=== PATIENT | female | born 2000 | race Two or more races ===

== ENCOUNTER 2020-01-11 22:44 | Emergency (ER) | payer OTHER, SELFPAY ==
[2020-01-11 22:46] VITALS: BP 131/60; PULSE 71; RESP 16; TEMP 37.1; O2SAT 100; BMI 23.8
--- NOTE | 2020-01-12 00:01 | ED.ABDPAIN ---
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 Patient stated she has no risk for STD. Related Data Patient : No Previous Rx's Medication Instructions Recorded cephalexin [Keflex] 250 mg PO TID #20 cap 01/12/20 Allergies Allergy/AdvReac Type Severity Reaction Status Date / Time No Known Allergies Allergy Unverified 11/09/19 19:20 [No Known Allergies*] Review of Systems Review of Systems All other systems are reviewed and are negative Constitutional: Reports as per HPI and Reports no additional constitutional complaints Eyes: Reports as per HPI and Reports no additional eye complaints Reports system reviewed and no additional complaints, except as documented Cardiovascular: Reports as per HPI and Reports no additional cardiovascular complaints Respiratory: Reports as per HPI and Reports no additional respiratory complaints Gastrointestinal: Reports as per HPI and Reports no additional gastrointestinal complaints Genitourinary: Reports no additional female genitourinary complaints Musculoskeletal: Reports no additional musculoskeletal complaints Skin/Breast: Reports system reviewed and no additional complaints, except as docu Psychiatric: Reports no additional psychiatric complaints Endocrine: Reports no additional endocrine complaints Hematologic/Lymphatic: Reports no additional hematologic/lymphatic complaints Allergic/Immunologic: Reports no additional allergic/immunologic complaints Reports system reviewed and no additional complaints, except as documented and Reports Abnormal speech present Physical Exam Vital Signs: Vital Signs: Last Vital Signs Temp 98.8 F 01/11/20 22:46 Pulse 71 01/11/20 22:46 Resp 16 01/11/20 22:46 BP 131/60 01/11/20 22:46 Pulse Ox 100 01/11/20 22:46 Body Mass Index 23.8 Vital signs have been reviewed as normal and appeared to be correct. Blood pressure in the high range. Heart rate normal. Respiration rate normal. Temperature normal. Oxygen saturation normal. Appearance: Alert. Oriented X3. No acute distress. Head: Normal external exam. Normocephalic. Atraumatic. No Malcolm signs noted. No raccoon eyes noted Eyes: PERRLA. EOMI. Conjunctiva and sclera normal. Eyelids normal. ENT: EAC normal. TM's Normal. Pharynx normal. Uvula midline. Moist mucous membranes. No trismus noted. No drooling noted. No muffled voice noted. Neck: Normal inspection. Neck supple. FROM. No adenopathy. Thyroid Normal. No meningeal signs. No neck mass noted. CVS: Normal heart rate and rhythm. Heart sound normal. No murmurs noted. Pulses normal throughout. Respiratory: No respiratory distress. Painless inspiration. Breath sounds normal. No wheezes/rales/rhonchi noted. Chest nontender. No accessory muscle usage noted or decreased air movement noted. Abdomen: Soft and mild suprapubic tenderness, no rebound, no guarding.. Bowel sounds normal in all 4 quadrants. No distention noted. No organomegaly noted. No visible injury noted. Back: No CVA tenderness. Full range of motion noted. Skin: Skin warm and dry. Normal skin color. Normal skin turgor. No rashes/lesions/lacerations noted. Extremities: No lower extremity edema. Extremities exhibit normal range of motion. Extremities nontender. Neuro: Oriented X 3. No motor deficit. No sensory deficit. Reflexes normal. MDM - Abdominal Pain MDM Narrative Medical decision making narrative: Assessment and plan. 19-year-old female came in with 4 days of abdominal pain, dysuria, patient has a history of appendectomy. Physical exam is unremarkable except for mild suprapubic tenderness, patient adamantly declined risk for STDs. UA showing trace of LE/wbc's will treat with Keflex and drink plenty of fluids. Lab Data Attestation: I reviewed the patient's lab results. Result diagrams: 01/12/20 00:09 01/12/20 00:09 Labs: Lab Results 01/12/20 01/12/20 01/12/20 Range/Units 00:09 00:09 00:09 WBC 7.5 (4.8-10.8) X10*3/uL RBC 4.50 (4.20-5.50) X10*6/uL Hgb 13.1 (12.0-16.0) g/dl Hct 40.0 (37-47) % MCV 88.9 (80-98) fL MCH 29.1 (27.0-33.0) pg MCHC 32.8 (31.0-35.0) g/dl RDW 12.7 (11.0-16.0) % Plt Count 193 (160-400) X10*3/uL MPV 11.9 (9.4-12.3) fL Immature Gran % (Auto) 0.1 (0.0-0.4) % Neut % (Auto) 65.7 (45-73) % Lymph % (Auto) 26.3 (20-40) % [place] % (Auto) 7.1 (2-11) % Eos % (Auto) 0.5 (0-4) % Baso % (Auto) 0.3 (0-2) % Lymph # (Auto) 2.0 (1.2-4.9) X10*3/uL [place] # (Auto) 0.5 (0.1-1.2) X10*3/uL Eos # (Auto) 0.0 (0.0-0.4) X10*3/uL Baso # (Auto) 0.0 (0.0-0.2) X10*3/uL Abs Immat Gran (auto) 0.01 (0.00-0.03) X10*3/uL Absolute Neuts (auto) 4.9 (2.0-8.3) X10*3/uL Absolute Nucleated RBC 0.000 (0.0-0.012) X10*3/uL Nucleated RBC % (auto) 0.0 (0.0-0.2) /100WBC Sodium 138 (135-145) mmol/L Potassium 4.1 (3.3-5.1) mmol/l Chloride 104 (96-108) mmol/L Carbon Dioxide 25 (22-29) mmol/L Anion Gap 13 (12-20) BUN 13 (9-16) mg/dL Creatinine 0.67 (0.5-1.4) mg/dL Estim Creat Clear Calc 105.0 Estimated GFR > 60 Random Glucose 91 (60-115) mg/dL Calcium 9.1 (8.4-10.2) mg/dL Total Bilirubin 0.7 (0.0-1.0) mg/dL Direct Bilirubin 0.2 (0.0-0.5) mg/dL AST 25 (5-31) U/L ALT 35 H (0-31) U/L Alkaline Phosphatase 55 (39-117) U/L Total Protein 7.3 (6.5-8.0) g/dL Albumin 4.7 (3.5-5.0) g/dL Lipase 44 (8-78) U/L Urine Color Urine Appearance Urine pH (5.0-8.0) Ur Specific [place] (1.005-1.025) Urine Protein (NEG-TRACE) MG/DL Urine Glucose (UA) (NEG) MG/DL Urine Ketones (NEG) MG/DL Urine Blood (NEG) Urine Nitrite (NEG) Ur Leukocyte Esterase (NEG) 01/12/20 Range/Units 00:45 WBC (4.8-10.8) X10*3/uL RBC (4.20-5.50) X10*6/uL Hgb (12.0-16.0) g/dl Hct (37-47) % MCV (80-98) fL MCH (27.0-33.0) pg MCHC (31.0-35.0) g/dl RDW (11.0-16.0) % Plt Count (160-400) X10*3/uL MPV (9.4-12.3) fL Immature Gran % (Auto) (0.0-0.4) % Neut % (Auto) (45-73) % Lymph % (Auto) (20-40) % [place] % (Auto) (2-11) % Eos % (Auto) (0-4) % Baso % (Auto) (0-2) % Lymph # (Auto) (1.2-4.9) X10*3/uL [place] # (Auto) (0.1-1.2) X10*3/uL Eos # (Auto) (0.0-0.4) X10*3/uL Baso # (Auto) (0.0-0.2) X10*3/uL Abs Immat Gran (auto) (0.00-0.03) X10*3/uL Absolute Neuts (auto) (2.0-8.3) X10*3/uL Absolute Nucleated RBC (0.0-0.012) X10*3/uL Nucleated RBC % (auto) (0.0-0.2) /100WBC Sodium (135-145) mmol/L Potassium (3.3-5.1) mmol/l Chloride (96-108) mmol/L Carbon Dioxide (22-29) mmol/L Anion Gap (12-20) BUN (9-16) mg/dL Creatinine (0.5-1.4) mg/dL Estim Creat Clear Calc Estimated GFR Random Glucose (60-115) mg/dL Calcium (8.4-10.2) mg/dL Total Bilirubin (0.0-1.0) mg/dL Direct Bilirubin (0.0-0.5) mg/dL AST (5-31) U/L ALT (0-31) U/L Alkaline Phosphatase (39-117) U/L Total Protein (6.5-8.0) g/dL Albumin (3.5-5.0) g/dL Lipase (8-78) U/L Urine Color YELLOW Urine Appearance CLEAR Urine pH 6.5 (5.0-8.0) Ur Specific [place] 1.020 (1.005-1.025) Urine Protein NEG (NEG-TRACE) MG/DL Urine Glucose (UA) NEG (NEG) MG/DL Urine Ketones NEG (NEG) MG/DL Urine Blood NEG (NEG) Urine Nitrite NEG (NEG) Ur Leukocyte Esterase 1+ H (NEG) Discharge Plan Discharge Clinical Impression: Cystitis Patient Disposition: Home, Self-Care Instructions: Urinary Tract Infection in Women (ED) Prescriptions: New cephalexin [Keflex] 250 mg capsule 250 mg PO TID Qty: 20 RF: 0 Referrals: Physician,None [Primary Care Provider] - 2 days [facility] Past Medical History Medical History (Updated 01/12/20 @ 01:18 by Meka Cedillo MD) No known health problems Surgical History (Updated 01/12/20 @ 00:05 by Meka Cedillo MD) History of appendectomy Social History Social History Alcohol intake: never Smoking Status: Never smoker Use of substances other than those prescribed or required for medical reasons: No Advance Directives: No Advance Directives Information Provided: No
[2020-01-12 00:14] LABS: MANUAL DIFF FLAG NO
[2020-01-12 00:16] LABS: Basophils Percent Auto 0.3 % (0-2); Eosinophils Percent Auto 0.5 % (0-4); Hemoglobin 13.1 g/dl (12.0-16.0); Imm Gran Abs Auto 0.01 X10*3/uL (0.00-0.03); Imm Gran Pct Auto 0.1 % (0.0-0.4); Lymphocytes Percent Auto 26.3 % (20-40); Mean Corpuscular HGB Conc 32.8 g/dl (31.0-35.0); Mean Corpuscular Hemoglobin 29.1 pg (27.0-33.0); Mean Corpuscular Volume 88.9 fL (80-98); Mean Platelet Volume 11.9 fL (9.4-12.3); Monocytes Absolute Auto 0.5 X10*3/uL (0.1-1.2); Monocytes Percent Auto 7.1 % (2-11); Neutrophils Absolute Auto 4.9 X10*3/uL (2.0-8.3); Neutrophils Percent Auto 65.7 % (45-73); Platelet Count 193 X10*3/uL (160-400); Red Cell Distribution Width 12.7 % (11.0-16.0); White Blood Count 7.5 X10*3/uL (4.8-10.8)
[2020-01-12 00:41] LABS: Anion Gap 13 (12-20); Blood Urea Nitrogen 13 mg/dL (9-16); Calcium 9.1 mg/dL (8.4-10.2); Carbon Dioxide 25 mmol/L (22-29); Chloride 104 mmol/L (96-108); Estimated Glomerular Filt Rate > 60; Glucose Random 91 mg/dL (60-115); Lipase 44 U/L (8-78); Potassium 4.1 mmol/l (3.3-5.1); Sodium 138 mmol/L (135-145)
[2020-01-12] MEDS: 0.9 % Sodium Chloride 500 ML 1000 ML IV (00:44)
[2020-01-12 00:45] LABS: Alanine Aminotransferase 35 U/L (0-31); Albumin Level 4.7 g/dL (3.5-5.0); Alkaline Phosphatase 55 U/L (39-117); Aspartate Amino Transferase 25 U/L (5-31); Bilirubin Direct 0.2 mg/dL (0.0-0.5); Bilirubin Total 0.7 mg/dL (0.0-1.0); Total Protein 7.3 g/dL (6.5-8.0)
[2020-01-12 00:53] LABS: Glucose Urine UA NEG (NEG); Leukocyte Esterase Urine 1+ (NEG); Nitrite Urine NEG (NEG); PH 6.5 (5.0-8.0); Urine Blood NEG (NEG); Urine Ketones NEG (NEG); Urine Protein NEG (NEG-TRACE)
[2020-01-12 01:01] LABS: Appearance Urine CLEAR; Color Urine YELLOW
[2020-01-12 01:08] LABS: RBC Urine 0 /HPF (0); Squamous Epithelial Cell Urine 1+ /LPF
[2020-01-12 01:09] LABS: Bacteria Urine TRACE /LPF; UPreg QC Valid YES; Urine Pregnancy NEGATIVE (NEGATIVE); WBC Clumps Urine NOTED
[2020-01-12] MEDS: cephALEXin 250 MG CAPSULE PO (01:20)
== END 2020-01-12 01:32 | disposition home or self-care (01) ==
PROVIDERS: Emergency Provider Emergency Medicine
DX: N30.00 Acute cystitis without hematuria (principal); R10.9 Unspecified abdominal pain; Z79.899 Other long term (current) drug therapy
CPT/HCPCS: 36415; 80048; 80076; 81001; 81003; 81025; 83690; 85025; 87086; 99284

== ENCOUNTER 2020-04-08 22:22 | Emergency (ER) | payer OTHER, SELFPAY ==
[2020-04-08 22:37] VITALS: BP 153/90; PULSE 69; RESP 16; TEMP 36.8; O2SAT 98; BMI 25.6
[2020-04-08 22:55] LABS: MANUAL DIFF FLAG NO
[2020-04-08 22:56] LABS: Basophils Percent Auto 0.2 % (0-2); Eosinophils Absolute Auto 0.1 X10*3/uL (0.0-0.4); Eosinophils Percent Auto 1.1 % (0-4); Hematocrit 38.9 % (37-47); Hemoglobin 12.9 g/dl (12.0-16.0); Lymphocytes Absolute Auto 1.6 X10*3/uL (1.2-4.9); Lymphocytes Percent Auto 30.6 % (20-40); Mean Corpuscular HGB Conc 33.2 g/dl (31.0-35.0); Mean Corpuscular Hemoglobin 30.1 pg (27.0-33.0); Mean Corpuscular Volume 90.9 fL (80-98); Monocytes Absolute Auto 0.4 X10*3/uL (0.1-1.2); Monocytes Percent Auto 7.4 % (2-11); Neutrophils Absolute Auto 3.2 X10*3/uL (2.0-8.3); Neutrophils Percent Auto 60.7 % (45-73); Platelet Count 154 X10*3/uL (160-400); Red Blood Count 4.28 X10*6/uL (4.20-5.50); Red Cell Distribution Width 11.9 % (11.0-16.0); White Blood Count 5.3 X10*3/uL (4.8-10.8)
[2020-04-08 22:57] LABS: Glucose Urine UA NEG (NEG); Leukocyte Esterase Urine NEG (NEG); Nitrite Urine NEG (NEG); Urine Blood 2+ (NEG); Urine Ketones NEG (NEG); Urine Protein NEG (NEG-TRACE)
[2020-04-08 22:58] LABS: Appearance Urine HAZY; Color Urine PINK
[2020-04-08 23:00] LABS: UPreg QC Valid YES; Urine Pregnancy NEGATIVE (NEGATIVE)
[2020-04-08 23:05] LABS: RBC Urine TNTC /HPF (0); Squamous Epithelial Cell Urine TRACE /LPF
[2020-04-08 23:17] LABS: Anion Gap 10 (12-20); Blood Urea Nitrogen 15 mg/dL (9-16); Calcium 9.1 mg/dL (8.4-10.2); Carbon Dioxide 28 mmol/L (22-29); Chloride 106 mmol/L (96-108); Creatinine Clr Calc Pharmacy 109.7; Estimated Glomerular Filt Rate > 60; Glucose Random 118 mg/dL (60-115); Potassium 3.7 mmol/L (3.3-5.1); Sodium 140 mmol/L (135-145)
--- NOTE | 2020-04-09 00:12 | ED.ABDPAIN ---
HPI - Abdominal Pain General Chief Complaint: Abdominal Pain Stated Complaint: Abd pain/Headache Source: patient Mode of arrival: ambulatory Limitations: language barrier History of Present Illness HPI narrative: 19-year-old female with no significant past medical history presents with 1 week of intermittent abdominal pain, nausea, and headaches. She does report an abnormal menstrual cycle and has concerns about . She does not report any fevers, chills, chest pain or pressure, palpitations, abdominal distention, dysuria, hematuria, vaginal discharge, or edema. MD elicited complaint: abdominal pain Onset (ago): week(s) (1) Pain Consistency: intermittent Location: suprapubic Severity: mild Quality: cramping Radiation: none Migration to: no migration Relieving factors: rest Associated symptoms: denies other symptoms Related Data Patient : No Previous Rx's Medication Instructions Recorded cephalexin [Keflex] 250 mg PO TID #20 cap 01/12/20 ondansetron HCl [Zofran] 4 mg PO Q8H PRN #7 tab 04/09/20 Allergies Allergy/AdvReac Type Severity Reaction Status Date / Time No Known Allergies Allergy Unverified 11/09/19 19:20 [No Known Allergies*] Review of Systems Review of Systems Constitutional: No Weight loss, No Fever, No Chills, No Night Sweats, No Fatigue, No Malaise ENT/Mouth: No Hearing loss, No Ear Pain, No Nasal Congestion, No Sinus Pain, No Hoarseness, No sore throat, No Rhinorrhea, No Swallowing Difficulty Eyes: No Eye Pain, No Swelling, No Redness, No Foreign Body, No Discharge, No Vision Changes Cardiovascular: No Chest Pain, No SOB, No Dyspnea on Exertion, No Orthopnea, No Edema, No Palpitations Respiratory: No Cough, No Sputum, No Wheezing, No Smoke Exposure, No Dyspnea Gastrointestinal: Positive Nausea, no Vomiting, no Diarrhea, no abdominal Pain, No Hematochezia, No Melena Genitourinary: no irregular bleeding, No Dysuria, No Urinary Frequency, No Hematuria, No Urinary Incontinence, No Urgency, No Flank Pain, No Urinary Flow Changes, No Hesitancy Musculoskeletal: No joint pain, No Myalgias, No Joint Swelling Skin: No Skin Lesions, No rash Neuro: No Weakness, No Numbness, No Paresthesias, No Loss of Consciousness, No Dizziness, No Headache Psych: No Anxiety/Panic, No Depression, No SI/HI/AH/VH, No Social Issues Heme/Lymph: No Bruising, No Bleeding,No Lymphadenopathy Endocrine: No Polyuria, No Polydipsia, No Temperature Intolerance Yes all other systems are reviewed and are negative Physical Exam Vital Signs: Vital Signs: Last Vital Signs Temp 98.2 F 04/08/20 22:37 Pulse 69 04/08/20 22:37 Resp 16 04/08/20 22:37 BP 153/90 H 04/08/20 22:37 Pulse Ox 98 04/08/20 22:37 Body Mass Index 25.6 Appearance: Alert. Oriented X3. No acute distress. Eyes: Pupils equal, round and reactive to light. ENT: Pharynx normal. Neck: Normal inspection. Neck supple. CVS: Normal heart rate and rhythm. Pulses normal. Respiratory: No respiratory distress. Breath sounds normal. Abdomen: Soft and nontender to palpation all quadrants. Normoactive bowel sounds. Skin: Skin warm and dry. Normal skin color. Normal skin turgor. Extremities: No lower extremity edema. Neuro: No motor deficit. No sensory deficit. Course Course Course Narrative: 19-year-old female with past medical history of appendectomy presents with 1 week of intermittent episodes of nausea, abdominal cramping, and an irregular menstrual cycle. Lab values are unremarkable for acute findings, test is negative. Patient menstruating at this time, which can describe the hematuria. At this time she does not have any abdominal pain or nausea. Will order COVID swab at this time. At 1:37 a.m. COVID test is negative. Plan of care is to discharge home with prescription for Zofran. 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 Will translate utilized for discharge instructions. Patient verbalized understanding of and agrees plan of care discharge home. MDM - Abdominal Pain Differential Diagnosis Differential diagnosis: Likely abdominal pain, constipation and gastroenteritis Medical Records Attestation: I reviewed the patient's medical records. Lab Data Attestation: I reviewed the patient's lab results. Result diagrams: 04/08/20 22:49 04/08/20 22:49 Labs: Lab Results 04/08/20 04/08/20 04/08/20 Range/Units 22:49 22:49 22:49 WBC 5.3 (4.8-10.8) X10*3/uL RBC 4.28 (4.20-5.50) X10*6/uL Hgb 12.9 (12.0-16.0) g/dl Hct 38.9 (37-47) % MCV 90.9 (80-98) fL MCH 30.1 (27.0-33.0) pg MCHC 33.2 (31.0-35.0) g/dl RDW 11.9 (11.0-16.0) % Plt Count 154 L (160-400) X10*3/uL MPV 12.0 (9.4-12.3) fL Immature Gran % (Auto) 0.0 (0.0-0.4) % Neut % (Auto) 60.7 (45-73) % Lymph % (Auto) 30.6 (20-40) % [place] % (Auto) 7.4 (2-11) % Eos % (Auto) 1.1 (0-4) % Baso % (Auto) 0.2 (0-2) % Lymph # (Auto) 1.6 (1.2-4.9) X10*3/uL [place] # (Auto) 0.4 (0.1-1.2) X10*3/uL Eos # (Auto) 0.1 (0.0-0.4) X10*3/uL Baso # (Auto) 0.0 (0.0-0.2) X10*3/uL Abs Immat Gran (auto) 0.00 (0.00-0.03) X10*3/uL Absolute Neuts (auto) 3.2 (2.0-8.3) X10*3/uL Absolute Nucleated RBC 0.000 (0.0-0.012) X10*3/uL Nucleated RBC % (auto) 0.0 (0.0-0.2) /100WBC Sodium 140 (135-145) mmol/L Potassium 3.7 (3.3-5.1) mmol/L Chloride 106 (96-108) mmol/L Carbon Dioxide 28 (22-29) mmol/L Anion Gap 10 L (12-20) BUN 15 (9-16) mg/dL Creatinine 0.71 (0.5-1.4) mg/dL Estim Creat Clear Calc 109.7 Estimated GFR > 60 Random Glucose 118 H (60-115) mg/dL Calcium 9.1 (8.4-10.2) mg/dL Urine Color PINK Urine Appearance HAZY Urine pH 8.0 (5.0-8.0) Ur Specific [place] 1.020 (1.005-1.025) Urine Protein NEG (NEG-TRACE) MG/DL Urine Glucose (UA) NEG (NEG) MG/DL Urine Ketones NEG (NEG) MG/DL Urine Blood 2+ H (NEG) Urine Nitrite NEG (NEG) Ur Leukocyte Esterase NEG (NEG) Urine RBC TNTC H (0) /HPF Urine WBC 1-4 (0-4) /HPF Ur Squamous Epith Cells TRACE /LPF Urine Bacteria NONE /LPF Urine Test NEGATIVE (NEGATIVE) COVID-19 (JAYLYN) (Negative) COVID-19 Clin Com 04/09/20 Range/Units 00:12 WBC (4.8-10.8) X10*3/uL RBC (4.20-5.50) X10*6/uL Hgb (12.0-16.0) g/dl Hct (37-47) % MCV (80-98) fL MCH (27.0-33.0) pg MCHC (31.0-35.0) g/dl RDW (11.0-16.0) % Plt Count (160-400) X10*3/uL MPV (9.4-12.3) fL Immature Gran % (Auto) (0.0-0.4) % Neut % (Auto) (45-73) % Lymph % (Auto) (20-40) % [place] % (Auto) (2-11) % Eos % (Auto) (0-4) % Baso % (Auto) (0-2) % Lymph # (Auto) (1.2-4.9) X10*3/uL [place] # (Auto) (0.1-1.2) X10*3/uL Eos # (Auto) (0.0-0.4) X10*3/uL Baso # (Auto) (0.0-0.2) X10*3/uL Abs Immat Gran (auto) (0.00-0.03) X10*3/uL Absolute Neuts (auto) (2.0-8.3) X10*3/uL Absolute Nucleated RBC (0.0-0.012) X10*3/uL Nucleated RBC % (auto) (0.0-0.2) /100WBC Sodium (135-145) mmol/L Potassium (3.3-5.1) mmol/L Chloride (96-108) mmol/L Carbon Dioxide (22-29) mmol/L Anion Gap (12-20) BUN (9-16) mg/dL Creatinine (0.5-1.4) mg/dL Estim Creat Clear Calc Estimated GFR Random Glucose (60-115) mg/dL Calcium (8.4-10.2) mg/dL Urine Color Urine Appearance Urine pH (5.0-8.0) Ur Specific [place] (1.005-1.025) Urine Protein (NEG-TRACE) MG/DL Urine Glucose (UA) (NEG) MG/DL Urine Ketones (NEG) MG/DL Urine Blood (NEG) Urine Nitrite (NEG) Ur Leukocyte Esterase (NEG) Urine RBC (0) /HPF Urine WBC (0-4) /HPF Ur Squamous Epith Cells /LPF Urine Bacteria /LPF Urine Test (NEGATIVE) COVID-19 (JAYLYN) Negative (Negative) COVID-19 Clin Com See Note Discharge Plan Discharge Clinical Impression: Nausea Patient Disposition: Home, Self-Care Instructions: Acute Nausea and Vomiting (ED) Additional Instructions: Te evaluaron por n?useas, dolor abdominal intermitente, un ciclo menstrual anormal. [place] prueba de embarazo es negativa. [place] prueba COVID es negativa. Romina valores de laboratorio no son notables para cualquier hallazgo que requiera evan intervenci?n aguda. Por favor, utilice Zofran seg?n sea necesario para las n?useas. Usted puede considerar hacer un seguimiento con el m?dico de atenci?n primaria si las n?useas persisten. Jennyfer por elegir franky departamento de emergencias para la evaluaci?n. Por favor, gene un seguimiento con el m?dico de atenci?n primaria seg?n sea necesario. Regrese al departamento de emergencias para cualquier s?ntoma nuevo, preocupante o que empeore You were evaluated for nauseousness, intermittent abdominal pain, an abnormal menstrual cycle. Her test is negative. Your COVID test is negative. Your lab values are unremarkable for any findings requiring acute intervention. Please use Zofran as needed for nausea. You may consider following up with primary care physician if nausea persists. Thank you for choosing this emergency department for evaluation. Please follow-up with primary care physician as needed. Return to the emergency department for any new, concerning, or worsening symptoms. Prescriptions: New ondansetron HCl [Zofran] 4 mg tablet 4 mg PO Q8H PRN (Reason: nausea and vomiting) Qty: 7 RF: 0 No Action cephalexin [Keflex] 250 mg capsule 250 mg PO TID Qty: 20 RF: 0 PMFSH Past Medical History Attestation statement: The following information was validated with the patient. Source: old records reviewed Medical History No known health problems Surgical History History of appendectomy Social History Social History Alcohol intake: never Smoking Status: Never smoker Advance Directives: No
[2020-04-09 01:13] LABS: COVID-19 Test Negative (Negative)
== END 2020-04-09 01:51 | disposition home or self-care (01) ==
PROVIDERS: Nurse Practitioner Family; Emergency Provider Student in an Organized Health Care Education/Training Program
DX: R11.2 Nausea with vomiting, unspecified (principal); Z20.822 Contact with and (suspected) exposure to COVID-19; N92.6 Irregular menstruation, unspecified
CPT/HCPCS: 36415; 80048; 81001; 81025; 85025; 87635; 99283

== ENCOUNTER 2020-05-27 13:19 | Emergency (ER) | payer OTHER, SELFPAY ==
[2020-05-27 13:52] VITALS: BP 118/71; PULSE 69; RESP 18; TEMP 36.8; O2SAT 100; BMI 57.2
--- NOTE | 2020-05-27 15:49 | ED.FEMALEGU ---
HPI - Female Genitourinary General Chief complaint: Vaginal Bleeding <LUCRETIA Nelson Last Filed: 05/27/20 18:00> Stated complaint: vag bleed <LUCRETIA Nelson Last Filed: 05/27/20 18:00> Time Seen by Provider: 05/27/20 15:44 <LUCRETIA Nelson Last Filed: 05/27/20 18:00> Source: patient <LUCRETIA Nelson Last Filed: 05/27/20 18:00> Mode of arrival: ambulatory <LUCRETIA Nelson Last Filed: 05/27/20 18:00> Limitations: no limitations <LUCRETIA Nelson Last Filed: 05/27/20 18:00> History of Present Illness HPI Narrative: 19 y/o female presenting with vaginal bleeding since 05/17. She reports she has had irregular menses for a long time however it has been much more frequent lately. She had 2 cycles in March and another cycle mid-April. She had a normal PAP smear on 05/15. She reports being on OCPs, is newly on [place] combination pill for the last 1 month because her prior pill was making her nauseated. She states she was dizzy with some bleeding that happened yesterday. She intermittently has some right lower pelvic pain over the last 1 week, none at present. She states she last had intercourse last night without pain or bleeding. This morning she had a gush of blood with some small clots that scared her. She called her doctor but got no response so she came to the ER for further evaluation. <LUCRETIA Nelson - Last Filed: 05/27/20 18:00> MD elicited complaint: vaginal bleeding <LUCRETIA Nelson Last Filed: 05/27/20 18:00> Onset (ago): month(s) (2-3) <LUCRETIA Nelson Last Filed: 05/27/20 18:00> Location of symptoms: vaginal and pelvis <LUCRETIA Nelson Last Filed: 05/27/20 18:00> Severity: moderate <LUCRETIA Nelson Last Filed: 05/27/20 18:00> Female Urogenital Radiation: Non-Radiating <LUCRETIA Nelson - Last Filed: 05/27/20 18:00> Quality of pain: cramping <LUCRETIA Nelson - Last Filed: 05/27/20 18:00> Consistency: intermittent <LUCRETIA Nelson - Last Filed: 05/27/20 18:00> Vaginal discharge: none <LUCRETIA Nelson - Last Filed: 05/27/20 18:00> Vaginal bleeding: moderate and clots <LUCRETIA Nelson - Last Filed: 05/27/20 18:00> Urinary symptoms: Urgency and Frequency <LUCRETIA Nelson - Last Filed: 05/27/20 18:00> Exacerbating factors: none <LUCRETIA Nelson - Last Filed: 05/27/20 18:00> Relieving factors: none <LUCRETIA Nelson - Last Filed: 05/27/20 18:00> Associated symptoms: abdominal pain <LUCRETIA Nelson - Last Filed: 05/27/20 18:00> Treatment prior to arrival: none <LUCRETIA Nelson - Last Filed: 05/27/20 18:00> Sexual activity: Yes <LUCRETIA Nelson - Last Filed: 05/27/20 18:00> Possible : unsure if <LUCRETIA Nelson - Last Filed: 05/27/20 18:00> Date of Last Menstrual Period: 05/06/20 <LUCRETIA Nelson - Last Filed: 05/27/20 18:00> Related Data Home medications: Previous Rx's Medication Instructions Recorded cephalexin [Keflex] 250 mg PO TID #20 cap 01/12/20 ondansetron HCl [Zofran] 4 mg PO Q8H PRN #7 tab 04/09/20 <LUCRETIA Nelson - Last Filed: 05/27/20 18:00> Allergies/Adverse reactions: Allergies Allergy/AdvReac Type Severity Reaction Status Date / Time No Known Allergies Allergy Unverified 05/27/20 13:33 [No Known Allergies*] <LUCRETIA Nelson - Last Filed: 05/27/20 18:00> Review of Systems Review of Systems: Constitutional: No Fever, No Chills Cardiovascular: No Chest Pain, No SOB Respiratory: No Cough, No Sputum Gastrointestinal: No Nausea, No Vomiting, No Diarrhea, + abdominal Pain, No Hematochezia, No Melena Genitourinary: No Dysuria, + Urinary Frequency, No Hematuria, +vaginal bleeding Skin: No Skin Lesions, No rash Neuro: No Weakness, No Numbness, + Dizziness, No Headache Psych: + Anxiety/Panic Endocrine: No Polyuria, No Polydipsia <LUCRETIA Nelson - Last Filed: 05/27/20 18:00> [facility]LY [facility] Past Medical History Medical History: Medical History No known health problems <LUCRETIA eNlson - Last Filed: 05/27/20 18:00> Surgical History: Surgical History History of appendectomy <LUCRETIA Nelson - Last Filed: 05/27/20 18:00> Date of Last Menstrual Period: 05/06/20 <LUCRETIA Nelson - Last Filed: 05/27/20 18:00> Social History Social History: Social History Alcohol intake: never Smoking Status: Never smoker Advance Directives: No Advance Directives Information Provided: No <LUCRETIA Nelson - Last Filed: 05/27/20 18:00> Physical Exam Vital Signs: Vital Signs: Last Vital Signs Temp 98.3 F 05/27/20 13:52 Pulse 75 05/27/20 17:58 Resp 12 05/27/20 17:58 BP 106/64 05/27/20 17:58 Pulse Ox 100 05/27/20 17:58 Body Mass Index 57.2 Appearance: Alert. Oriented X3. No acute distress. HEENT: normal external inspection Neck: Normal inspection. Neck supple. CVS: Normal heart rate and rhythm. Pulses normal. Respiratory: No respiratory distress. Breath sounds normal. Abdomen: Soft and nontender. +BS x4 Pelvic: normal external genitalia, vaginal vault with scant amount of brown vaginal discharge and dark red blood at cervical os Skin: Skin warm and dry. Normal skin color. Normal skin turgor. No rashes. Extremities: No lower extremity edema. Neuro: Oriented X 3. nonfocal <LUCRETIA Nelson - Last Filed: 05/27/20 18:00> Vital Signs: Last Vital Signs Temp 98.3 F 05/27/20 13:52 Pulse 75 05/27/20 17:58 Resp 12 05/27/20 17:58 BP 106/64 05/27/20 17:58 Pulse Ox 100 05/27/20 17:58 Body Mass Index 57.2 <Edilson Cummings MD - Last Filed: 06/11/20 09:19> Course Course Course Narrative: 19 y/o female with irregular menses presenting with irregular bleeding. Symptomatic yesterday with dizziness. Pelvic exam unremarkable. Will check CBC and coags to assess for anemia. <LUCRETIA Nelson - Last Filed: 05/27/20 18:00> I have reviewed the chart <Edilson Cummings MD - Last Filed: 06/11/20 09:19> Reevaluation(s) Reevaluation #1: H/H is normal. Coags normal. Awaiting UA then can d/c home with plan to follow up with OB. <LUCRETIA Nelson - Last Filed: 05/27/20 18:00> MDM - Female Genitourinary Lab Data Result diagrams: : 05/27/20 17:10 05/27/20 17:10 <LUCRETIA Nelson - Last Filed: 05/27/20 18:00> Labs: Lab Results 05/27/20 05/27/20 05/27/20 Range/Units 17:10 17:10 17:10 WBC 6.3 (4.8-10.8) X10*3/uL RBC 4.51 (4.20-5.50) X10*6/uL Hgb 13.6 (12.0-16.0) g/dl Hct 41.1 (37-47) % MCV 91.1 (80-98) fL MCH 30.2 (27.0-33.0) pg MCHC 33.1 (31.0-35.0) g/dl RDW 12.4 (11.0-16.0) % Plt Count 184 (160-400) X10*3/uL MPV 12.0 (9.4-12.3) fL Immature Gran % (Auto) 0.2 (0.0-0.4) % Neut % (Auto) 64.4 (45-73) % Lymph % (Auto) 27.3 (20-40) % [place] % (Auto) 6.5 (2-11) % Eos % (Auto) 1.3 (0-4) % Baso % (Auto) 0.3 (0-2) % Lymph # (Auto) 1.7 (1.2-4.9) X10*3/uL [place] # (Auto) 0.4 (0.1-1.2) X10*3/uL Eos # (Auto) 0.1 (0.0-0.4) X10*3/uL Baso # (Auto) 0.0 (0.0-0.2) X10*3/uL Abs Immat Gran (auto) 0.01 (0.00-0.03) X10*3/uL Absolute Neuts (auto) 4.0 (2.0-8.3) X10*3/uL Absolute Nucleated RBC 0.000 (0.0-0.012) X10*3/uL Nucleated RBC % (auto) 0.0 (0.0-0.2) /100WBC PT 11.5 (10.8-13.0) SEC INR 1.0 (0.9-1.1) APTT 34.8 (24.1-38.0) SEC Sodium 140 (135-145) mmol/L Potassium 3.7 (3.3-5.1) mmol/L Chloride 104 (96-108) mmol/L Carbon Dioxide 30 H (22-29) mmol/L Anion Gap 10 L (12-20) BUN 12 (9-16) mg/dL Creatinine 0.73 (0.5-1.4) mg/dL Estim Creat Clear Calc 167.1 Estimated GFR > 60 Random Glucose 120 H (60-115) mg/dL Calcium 9.2 (8.4-10.2) mg/dL Beta HCG, Quant < 2 mIU/mL Urine Color Urine Appearance Urine pH (5.0-8.0) Ur Specific [place] (1.005-1.025) Urine Protein (NEG-TRACE) MG/DL Urine Glucose (UA) (NEG) MG/DL Urine Ketones (NEG) MG/DL Urine Blood (NEG) Urine Nitrite (NEG) Ur Leukocyte Esterase (NEG) Urine RBC (0) /HPF Urine WBC (0-4) /HPF Ur Squamous Epith Cells /LPF Amorphous Sediment /LPF Urine Bacteria /LPF Urine Test (NEGATIVE) 05/27/20 05/27/20 Range/Units 17:10 17:10 WBC (4.8-10.8) X10*3/uL RBC (4.20-5.50) X10*6/uL Hgb (12.0-16.0) g/dl Hct (37-47) % MCV (80-98) fL MCH (27.0-33.0) pg MCHC (31.0-35.0) g/dl RDW (11.0-16.0) % Plt Count (160-400) X10*3/uL MPV (9.4-12.3) fL Immature Gran % (Auto) (0.0-0.4) % Neut % (Auto) (45-73) % Lymph % (Auto) (20-40) % [place] % (Auto) (2-11) % Eos % (Auto) (0-4) % Baso % (Auto) (0-2) % Lymph # (Auto) (1.2-4.9) X10*3/uL [place] # (Auto) (0.1-1.2) X10*3/uL Eos # (Auto) (0.0-0.4) X10*3/uL Baso # (Auto) (0.0-0.2) X10*3/uL Abs Immat Gran (auto) (0.00-0.03) X10*3/uL Absolute Neuts (auto) (2.0-8.3) X10*3/uL Absolute Nucleated RBC (0.0-0.012) X10*3/uL Nucleated RBC % (auto) (0.0-0.2) /100WBC PT (10.8-13.0) SEC INR (0.9-1.1) APTT (24.1-38.0) SEC Sodium (135-145) mmol/L Potassium (3.3-5.1) mmol/L Chloride (96-108) mmol/L Carbon Dioxide (22-29) mmol/L Anion Gap (12-20) BUN (9-16) mg/dL Creatinine (0.5-1.4) mg/dL Estim Creat Clear Calc Estimated GFR Random Glucose (60-115) mg/dL Calcium (8.4-10.2) mg/dL Beta HCG, Quant mIU/mL Urine Color YELLOW Urine Appearance HAZY Urine pH 7.5 (5.0-8.0) Ur Specific [place] 1.020 (1.005-1.025) Urine Protein NEG (NEG-TRACE) MG/DL Urine Glucose (UA) NEG (NEG) MG/DL Urine Ketones NEG (NEG) MG/DL Urine Blood 2+ H (NEG) Urine Nitrite NEG (NEG) Ur Leukocyte Esterase NEG (NEG) Urine RBC 1-4 (0) /HPF Urine WBC 1-4 (0-4) /HPF Ur Squamous Epith Cells 1+ /LPF Amorphous Sediment 4+ /LPF Urine Bacteria NONE /LPF Urine Test NEGATIVE (NEGATIVE) <LUCRETIA Nelson - Last Filed: 05/27/20 18:00> Lab Results 05/27/20 05/27/20 05/27/20 Range/Units 17:10 17:10 17:10 WBC 6.3 (4.8-10.8) X10*3/uL RBC 4.51 (4.20-5.50) X10*6/uL Hgb 13.6 (12.0-16.0) g/dl Hct 41.1 (37-47) % MCV 91.1 (80-98) fL MCH 30.2 (27.0-33.0) pg MCHC 33.1 (31.0-35.0) g/dl RDW 12.4 (11.0-16.0) % Plt Count 184 (160-400) X10*3/uL MPV 12.0 (9.4-12.3) fL Immature Gran % (Auto) 0.2 (0.0-0.4) % Neut % (Auto) 64.4 (45-73) % Lymph % (Auto) 27.3 (20-40) % [place] % (Auto) 6.5 (2-11) % Eos % (Auto) 1.3 (0-4) % Baso % (Auto) 0.3 (0-2) % Lymph # (Auto) 1.7 (1.2-4.9) X10*3/uL [place] # (Auto) 0.4 (0.1-1.2) X10*3/uL Eos # (Auto) 0.1 (0.0-0.4) X10*3/uL Baso # (Auto) 0.0 (0.0-0.2) X10*3/uL Abs Immat Gran (auto) 0.01 (0.00-0.03) X10*3/uL Absolute Neuts (auto) 4.0 (2.0-8.3) X10*3/uL Absolute Nucleated RBC 0.000 (0.0-0.012) X10*3/uL Nucleated RBC % (auto) 0.0 (0.0-0.2) /100WBC PT 11.5 (10.8-13.0) SEC INR 1.0 (0.9-1.1) APTT 34.8 (24.1-38.0) SEC Sodium 140 (135-145) mmol/L Potassium 3.7 (3.3-5.1) mmol/L Chloride 104 (96-108) mmol/L Carbon Dioxide 30 H (22-29) mmol/L Anion Gap 10 L (12-20) BUN 12 (9-16) mg/dL Creatinine 0.73 (0.5-1.4) mg/dL Estim Creat Clear Calc 167.1 Estimated GFR > 60 Random Glucose 120 H (60-115) mg/dL Calcium 9.2 (8.4-10.2) mg/dL Beta HCG, Quant < 2 mIU/mL Urine Color Urine Appearance Urine pH (5.0-8.0) Ur Specific [place] (1.005-1.025) Urine Protein (NEG-TRACE) MG/DL Urine Glucose (UA) (NEG) MG/DL Urine Ketones (NEG) MG/DL Urine Blood (NEG) Urine Nitrite (NEG) Ur Leukocyte Esterase (NEG) Urine RBC (0) /HPF Urine WBC (0-4) /HPF Ur Squamous Epith Cells /LPF Amorphous Sediment /LPF Urine Bacteria /LPF Urine Test (NEGATIVE) 05/27/20 05/27/20 Range/Units 17:10 17:10 WBC (4.8-10.8) X10*3/uL RBC (4.20-5.50) X10*6/uL Hgb (12.0-16.0) g/dl Hct (37-47) % MCV (80-98) fL MCH (27.0-33.0) pg MCHC (31.0-35.0) g/dl RDW (11.0-16.0) % Plt Count (160-400) X10*3/uL MPV (9.4-12.3) fL Immature Gran % (Auto) (0.0-0.4) % Neut % (Auto) (45-73) % Lymph % (Auto) (20-40) % [place] % (Auto) (2-11) % Eos % (Auto) (0-4) % Baso % (Auto) (0-2) % Lymph # (Auto) (1.2-4.9) X10*3/uL [place] # (Auto) (0.1-1.2) X10*3/uL Eos # (Auto) (0.0-0.4) X10*3/uL Baso # (Auto) (0.0-0.2) X10*3/uL Abs Immat Gran (auto) (0.00-0.03) X10*3/uL Absolute Neuts (auto) (2.0-8.3) X10*3/uL Absolute Nucleated RBC (0.0-0.012) X10*3/uL Nucleated RBC % (auto) (0.0-0.2) /100WBC PT (10.8-13.0) SEC INR (0.9-1.1) APTT (24.1-38.0) SEC Sodium (135-145) mmol/L Potassium (3.3-5.1) mmol/L Chloride (96-108) mmol/L Carbon Dioxide (22-29) mmol/L Anion Gap (12-20) BUN (9-16) mg/dL Creatinine (0.5-1.4) mg/dL Estim Creat Clear Calc Estimated GFR Random Glucose (60-115) mg/dL Calcium (8.4-10.2) mg/dL Beta HCG, Quant mIU/mL Urine Color YELLOW Urine Appearance HAZY Urine pH 7.5 (5.0-8.0) Ur Specific [place] 1.020 (1.005-1.025) Urine Protein NEG (NEG-TRACE) MG/DL Urine Glucose (UA) NEG (NEG) MG/DL Urine Ketones NEG (NEG) MG/DL Urine Blood 2+ H (NEG) Urine Nitrite NEG (NEG) Ur Leukocyte Esterase NEG (NEG) Urine RBC 1-4 (0) /HPF Urine WBC 1-4 (0-4) /HPF Ur Squamous Epith Cells 1+ /LPF Amorphous Sediment 4+ /LPF Urine Bacteria NONE /LPF Urine Test NEGATIVE (NEGATIVE) <Edilson Cummings MD - Last Filed: 06/11/20 09:19> Discharge Plan Discharge Clinical Impression: Vaginal bleeding <LUCRETIA Nelson - Last Filed: 05/27/20 18:00> Patient Disposition: Home, Self-Care <LUCRETIA Nelson - Last Filed: 05/27/20 18:00> Instructions: Dysfunctional Uterine Bleeding (ED) <LUCRETIA Nelson - Last Filed: 05/27/20 18:00> Additional Instructions: Your pelvic exam was unremarkable. Your blood work showed normal blood counts. Recommend following up with a dedicated [facility] [employer]ER provider - information below Continue to take your control pills. Irregular bleeding can occur when the pill is changed. If you have worsening bleeding along with pain, dizziness, chest pain, or shortness of breath come back to the ER for further evaluation. [place] examen p?lvico no tuvo nada especial. [place] an?lisis de marybeth mostr? recuentos sangu?neos normales. Recomendar el seguimiento con un proveedor de obstetricia / ginecolog?a dedicado: informaci?n a continuaci?n Contin?e tomando matilde p?ldoras anticonceptivas. Puede ocurrir sangrado irregular cuando se cambia la p?ldora. Si tiene un sangrado que empeora junto con dolor, mareos, dolor en el pecho o dificultad para respirar, regrese a la keira de emergencias para evan evaluaci?n adicional. <LUCRETIA Nelson - Last Filed: 05/27/20 18:00> Prescriptions: No Action cephalexin [Keflex] 250 mg capsule 250 mg PO TID Qty: 20 RF: 0 ondansetron HCl [Zofran] 4 mg tablet 4 mg PO Q8H PRN (Reason: nausea and vomiting) Qty: 7 RF: 0 <LUCRETIA Nelson - Last Filed: 05/27/20 18:00> Referrals: Easton Cooper MD [Physician] - 2 days (abnormal vaginal bleeding) <LUCRETIA Nelson - Last Filed: 05/27/20 18:00> Interventions: ED Discharge Assessment Last Done: 05/27/20 18:24 <LUCRETIA Nelson - Last Filed: 05/27/20 18:00> Discharge Date/Time: 05/27/20 18:26 <LUCRETIA Nelson - Last Filed: 05/27/20 18:00>
[2020-05-27 17:20] LABS: MANUAL DIFF FLAG NO
[2020-05-27 17:21] LABS: Basophils Percent Auto 0.3 % (0-2); Eosinophils Absolute Auto 0.1 X10*3/uL (0.0-0.4); Eosinophils Percent Auto 1.3 % (0-4); Hematocrit 41.1 % (37-47); Hemoglobin 13.6 g/dl (12.0-16.0); Imm Gran Abs Auto 0.01 X10*3/uL (0.00-0.03); Imm Gran Pct Auto 0.2 % (0.0-0.4); Lymphocytes Absolute Auto 1.7 X10*3/uL (1.2-4.9); Lymphocytes Percent Auto 27.3 % (20-40); Mean Corpuscular HGB Conc 33.1 g/dl (31.0-35.0); Mean Corpuscular Hemoglobin 30.2 pg (27.0-33.0); Mean Corpuscular Volume 91.1 fL (80-98); Monocytes Absolute Auto 0.4 X10*3/uL (0.1-1.2); Monocytes Percent Auto 6.5 % (2-11); Neutrophils Percent Auto 64.4 % (45-73); Platelet Count 184 X10*3/uL (160-400); Red Blood Count 4.51 X10*6/uL (4.20-5.50); Red Cell Distribution Width 12.4 % (11.0-16.0); White Blood Count 6.3 X10*3/uL (4.8-10.8)
[2020-05-27 17:35] LABS: Prothrombin Time 11.5 SEC (10.8-13.0)
[2020-05-27 17:38] LABS: Partial Thromboplastin Time 34.8 SEC (24.1-38.0)
[2020-05-27 17:40] LABS: Anion Gap 10 (12-20); Blood Urea Nitrogen 12 mg/dL (9-16); Calcium 9.2 mg/dL (8.4-10.2); Carbon Dioxide 30 mmol/L (22-29); Chloride 104 mmol/L (96-108); Creatinine Clr Calc Pharmacy 167.1; Estimated Glomerular Filt Rate > 60; Glucose Random 120 mg/dL (60-115); Glucose Urine UA NEG (NEG); Leukocyte Esterase Urine NEG (NEG); Nitrite Urine NEG (NEG); PH 7.5 (5.0-8.0); Potassium 3.7 mmol/L (3.3-5.1); Sodium 140 mmol/L (135-145); Urine Blood 2+ (NEG); Urine Ketones NEG (NEG); Urine Protein NEG (NEG-TRACE)
[2020-05-27 17:50] LABS: Appearance Urine HAZY; Color Urine YELLOW; UPreg QC Valid YES; Urine Pregnancy NEGATIVE (NEGATIVE)
[2020-05-27 17:58] VITALS: BP 106/64; PULSE 75; RESP 12; O2SAT 100
[2020-05-27 18:04] LABS: Amorphous Sediment Urine 4+ /LPF; Squamous Epithelial Cell Urine 1+ /LPF
[2020-05-27 18:50] LABS: HCG Quantitative < 2 mIU/mL
== END 2020-05-27 18:26 | disposition home or self-care (01) ==
PROVIDERS: Physician Assistant; Emergency Provider Emergency Medicine
DX: N93.9 Abnormal uterine and vaginal bleeding, unspecified (principal); R25.2 Cramp and spasm; Z79.899 Other long term (current) drug therapy
CPT/HCPCS: 36415; 80048; 81001; 81025; 84702; 85025; 85610; 85730; 99283

== ENCOUNTER → 2020-10-01 13:38 | Outpatient (BNVA) | payer OTHER, SELFPAY | PROVIDERS: Visit Provider Advanced Practice Midwife | DX: Z32.01 Encounter for pregnancy test, result positive (principal) | CPT/HCPCS: 99202 ==

== ENCOUNTER 2022-02-24 19:58 | Emergency (ER) | payer OTHER, SELFPAY ==
--- NOTE | ~2022-02-24 | XR_ITS ---
EXAMINATION: XR CHEST CLINICAL INFORMATION: Chest pain COMPARISON: Chest x-ray 10/13/2017 TECHNIQUE: Frontal view of the chest was obtained. FINDINGS: No significant abnormality is noted involving the heart, lungs, mediastinum, bony thorax or soft tissues. XR/XR chest 1V IMPRESSION: Unremarkable examination.
--- NOTE | ~2022-02-24 | US_ITS ---
EXAMINATION: US ABDOMEN LIMITED CLINICAL INFORMATION: Cholelithiasis. COMPARISON: CT dated 10/28/2016 TECHNIQUE: Real-time imaging of the right upper quadrant abdominal viscera. FINDINGS: PANCREAS: Normal. LIVER: Normal. The liver is normal in size. The liver contour is normal. Parenchymal echogenicity is normal. No focal hepatic lesion. There is no intrahepatic biliary duct dilatation seen. GALLBLADDER: The gallbladder is physiologically distended without evidence of stones, sludge, wall thickening or pericholecystic fluid. There is a 2 mm polyp. Polyps of this small size almost invariably represent cholesterolosis. No follow-up indicated. COMMON BILE DUCT: Normal in caliber measuring 0.3 cm in diameter. RIGHT KIDNEY: Echogenic renal pyramids. No hydronephrosis. Nonobstructive suspected in the mid and lower pole. No focal parenchymal lesions. The kidney measures 10.7 cm in maximum dimension. FREE FLUID: None. US/US abdomen limited IMPRESSION: * No cholelithiasis or evidence of cholecystitis. * Bilateral echogenic right renal pyramids. This can be seen in setting of medullary nephrocalcinosis, medullary sponge kidney and many other disease processes. * There are 2 nonobstructive calculi in the right kidney.
--- NOTE | ~2022-02-24 | CT_ITS ---
EXAMINATION: CT ABDOMEN AND PELVIS WITHOUT CONTRAST CLINICAL INFORMATION: Pain and fever. COMPARISON: 10/28/2016 TECHNIQUE: Multidetector volumetric imaging was performed from the superior aspect of the liver through the pubic symphysis. Sagittal and coronal reformatted images were obtained on the technologist's workstation. This CT examination was performed using dose optimization techniques as appropriate, variously including the following: *Automated exposure control *Adjustment of mA and/or kV according to patient size (this includes techniques or standardized protocols for targeted exams where dose is matched to indication/reason for exam; i.e. extremities or head) *Use of iterative reconstruction technique DLP: 519 mGy-cm FINDINGS: LUNG BASES: The visualized lung bases are unremarkable. LIVER, GALLBLADDER, AND BILIARY TREE: The liver is normal in size, shape, and attenuation. No focal hepatic lesion or biliary ductal dilatation is present. The gallbladder is unremarkable with no evidence of radiopaque gallstones, gallbladder wall thickening, or obvious pericholecystic inflammatory changes. PANCREAS: Unremarkable. SPLEEN: Unremarkable. ADRENAL GLANDS: Unremarkable. KIDNEYS AND URETERS: Bilateral medullary nephrocalcinosis with superimposed discrete calcifications, unclear whether they resides within the pyramids or calyces/fornices. No ureteral calculi or hydronephrosis. No renal cysts or masses. No perinephric stranding. BLADDER: Unremarkable. GASTROINTESTINAL TRACT: No bowel obstruction. Previous appendectomy. Mild some mucosal fat deposition within the terminal ileum. No perienteric inflammation. ABDOMINAL WALL: Small fat-containing umbilical hernia without inflammation. LYMPH NODES: Normal. VASCULAR: Unremarkable. PELVIC VISCERA: Uterus and adnexa unremarkable. OSSEOUS STRUCTURES: Unremarkable. CT/CT abdomen pelvis wo IV con IMPRESSION: * No acute findings within the abdomen or pelvis to explain the patient's symptomatology. * Bilateral medullary nephrocalcinosis. Statistically, this is most often seen in the setting of distal renal tubular acidosis, hyperparathyroidism and medullary sponge kidney. * Minimal submucosal fat deposition within the terminal ileum. This can be seen in normal patients, or sometimes in association with chronic inflammatory bowel diseases.
--- NOTE | 2022-02-24 20:10 | ED_ITS ---
HPI - Dizziness General Chief Complaint: Headache <LUCRETIA Tello - Last Filed: 02/24/22 20:25> Stated Complaint: headache dizziness <LUCRETIA Tello - Last Filed: 02/24/22 20:25> Time Seen by Provider: 02/24/22 22:44 <LUCRETIA Tello - Last Filed: 02/24/22 20:25> Source: patient <Héctor Silva MD - Last Filed: 02/25/22 01:26> Mode of arrival: ambulatory <Héctor Silva MD - Last Filed: 02/25/22 01:26> Limitations: no limitations <Héctor Silva MD - Last Filed: 02/25/22 01:26> History of Present Illness HPI Narrative: Patient with history of hypothyroidism comes here multiple complaints for last 3 weeks feels headache dizziness weakness nausea diffuse abdominal pain body aches noticed to have temperature today of 101.5 no urine complaints no cough no respiratory symptoms <Héctor Silva MD - Last Filed: 02/25/22 01:26> Related Data Home Medications: Previous Rx's Medication Instructions Recorded dicyclomine 20 mg tablet 20 mg PO TID PRN abdominal pain 02/25/22 #20 tabs <LUCRETIA Tello - Last Filed: 02/24/22 20:25> Allergies/Adverse Reactions: Allergies Allergy/AdvReac Type Severity Reaction Status Date / Time No Known Allergies Allergy Verified 10/01/20 13:56 [No Known Allergies*] <LUCRETIA Tello - Last Filed: 02/24/22 20:25> Review of Systems Review of Systems: Yes all other systems are reviewed and are negative <Héctor Silva MD - Last Filed: 02/25/22 01:26> [facility] Past Medical History Medical History: Medical History No known health problems <LUCRETIA Tello - Last Filed: 02/24/22 20:25> Surgical History: Surgical History History of appendectomy <LUCRETIA Tello - Last Filed: 02/24/22 20:25> Social History Social History: Social History Alcohol intake: never Patient Tobacco Use Status: Never used Tobacco Advance Directives: No Advance Directives Information Provided: No Gender identity: Female <LUCRETIA Tello - Last Filed: 02/24/22 20:25> Physical Exam Vital Signs: Vital Signs: Last Vital Signs Temp 98.5 F 02/24/22 23:50 Pulse 91 02/24/22 23:50 Resp 20 02/24/22 23:50 BP 114/66 02/24/22 23:50 Pulse Ox 100 02/24/22 23:50 O2 Del Method 02/24/22 23:50 BMI result Body Mass Index 25.7 <LUCRETIA Tello - Last Filed: 02/24/22 20:25> Vital Signs: Last Vital Signs Temp 98.5 F 02/24/22 23:50 Pulse 91 02/24/22 23:50 Resp 20 02/24/22 23:50 BP 114/66 02/24/22 23:50 Pulse Ox 100 02/24/22 23:50 O2 Del Method 02/24/22 23:50 BMI result Body Mass Index 25.7 <Héctor Silva MD - Last Filed: 02/25/22 01:26> Appearance: Alert. Oriented X3. No acute distress. Eyes: PERRLA, No Nystagmus ENT: Pharynx normal. Oral Mucosa moist Neck: Normal inspection. Neck supple. CVS: Normal heart rate and rhythm. Pulses normal. Respiratory: No respiratory distress. Equal air entry bilateral, no wheezing/rales/rhonchi Abdomen: Soft diffuse upper abdominal tenderness no rebound tenderness or guarding Bowel sounds are present, no mass palpable, no CVA tenderness Skin: Skin warm and dry. Normal skin color. Normal skin turgor. Extremities: No lower extremity edema. No calf tenderness Neuro: Oriented X 3. No motor deficit. No sensory deficit.No cerebellar signs , cranial nerves II-XII intact <Héctor Silva MD - Last Filed: 02/25/22 01:26> Course Course Course Narrative: RME--21-year-old female with past medical history anemia, low PLTs, presenting to the ED complaining of BRYANT, dizziness, myalgias, chills, abdominal pain, & chest pain x 3 weeks. On exam febrile 101, abd soft diffusely ttp, no rebound or guarding. ambulating w/steady gait EKG, labs, UA, COVID/FLU/RSV, CXR and CT/AP, IVF, Meclizine and PO Tylenol ordered in triage <LUCRETIA Tello - Last Filed: 02/24/22 20:25> Medications Administered Discontinued Medications Generic Name Dose Route Start Last Admin Trade Name Freq PRN Reason Stop Dose Admin Acetaminophen 650 mg 02/24/22 20:20 02/24/22 20:36 Acetaminophen 325 Mg Tablet PO 02/24/22 20:21 650 mg ONCE ONE Administration Sodium Chloride 1,000 mls @ 999 mls/hr 02/24/22 20:30 02/25/22 00:10 Ns IV 02/24/22 21:30 999 mls/hr .Q1H1M KAILA Administration Meclizine HCl 25 mg 02/24/22 20:20 02/24/22 20:37 Meclizine Hcl 25 Mg Tablet PO 02/24/22 20:21 25 mg ONCE ONE Administration Ondansetron HCl 4 mg 02/25/22 00:02 02/25/22 00:05 Ondansetron Odt 4 Mg Tab.Rapdis TRANSLINGU 02/25/22 00:03 4 mg ONCE ONE Administration Tramadol HCl 50 mg 02/24/22 23:14 02/24/22 23:59 Tramadol Hcl 50 Mg Tablet PO 02/24/22 23:15 50 mg ONCE ONE Administration <LUCRETIA Tello - Last Filed: 02/24/22 20:25> Medications Administered Discontinued Medications Generic Name Dose Route Start Last Admin Trade Name Freq PRN Reason Stop Dose Admin Acetaminophen 650 mg 02/24/22 20:20 02/24/22 20:36 Acetaminophen 325 Mg Tablet PO 02/24/22 20:21 650 mg ONCE ONE Administration Sodium Chloride 1,000 mls @ 999 mls/hr 02/24/22 20:30 02/25/22 00:10 Ns IV 02/24/22 21:30 999 mls/hr .Q1H1M KAILA Administration Meclizine HCl 25 mg 02/24/22 20:20 02/24/22 20:37 Meclizine Hcl 25 Mg Tablet PO 02/24/22 20:21 25 mg ONCE ONE Administration Ondansetron HCl 4 mg 02/25/22 00:02 02/25/22 00:05 Ondansetron Odt 4 Mg Tab.Rapdis TRANSLINGU 02/25/22 00:03 4 mg ONCE ONE Administration Tramadol HCl 50 mg 02/24/22 23:14 02/24/22 23:59 Tramadol Hcl 50 Mg Tablet PO 02/24/22 23:15 50 mg ONCE ONE Administration <Héctor Silva MD - Last Filed: 02/25/22 01:26> Medical Decision Making Medical Decision Making MDM Narrative: Patient with diffuse abdominal pain likely IBS ultrasound negative for gallbladder disease situation abdomen is also negative patient had a left shift etiology not very clear likely leukemoid reaction versus viral. Patient advised to drink plenty of fluids advised dicyclomine for abdominal pain and follow with PCP <Héctor Silva MD - Last Filed: 02/25/22 01:26> Lab Data Result Diagrams: : 02/24/22 20:40 02/24/22 20:40 <LUCRETIA Tello - Last Filed: 02/24/22 20:25> Labs: Lab Results 02/24/22 02/24/22 02/24/22 Range/Units 20:40 20:40 20:40 WBC 9.7 (4.8-10.8) X10*3/uL RBC 4.73 (4.20-5.50) X10*6/uL Hgb 14.2 (12.0-16.0) g/dl Hct 43.0 (37.0-47.0) % MCV 90.9 (80.0-98.0) fL MCH 30.0 (27.0-33.0) pg MCHC 33.0 (31.0-35.0) g/dl RDW 11.9 (11.0-16.0) % Plt Count 179 (160-400) X10*3/uL MPV 11.8 (9.4-12.3) fL Immature Gran % (Auto) 0.3 (0.0-0.4) % Neut % (Auto) 91.1 H (45-73) % Lymph % (Auto) 5.1 L (20-40) % [place] % (Auto) 3.0 (2-11) % Eos % (Auto) 0.4 (0-4) % Baso % (Auto) 0.1 (0-2) % Lymph # (Auto) 0.5 L (1.2-4.9) X10*3/uL [place] # (Auto) 0.3 (0.1-1.2) X10*3/uL Eos # (Auto) 0.0 (0.0-0.4) X10*3/uL Baso # (Auto) 0.0 (0.0-0.2) X10*3/uL Abs Immat Gran (auto) 0.03 (0.00-0.03) X10*3/uL Absolute Neuts (auto) 8.8 H (2.0-8.3) x10*3/uL Absolute Nucleated RBC 0.000 (0.0-0.012) X10*3/uL Nucleated RBC % (auto) 0.0 (0.0-0.2) /100WBC Smear Tech's Comments VERIFIED Sodium 139 (135-145) mmol/L Potassium 3.7 (3.3-5.1) mmol/L Chloride 105 (96-108) mmol/L Carbon Dioxide 27 (22-29) mmol/L Anion Gap 11 L (12-20) BUN 12 (9-16) mg/dL Creatinine 0.65 (0.5-1.4) mg/dL Estim Creat Clear Calc 118.1 Estimated GFR > 60 Random Glucose 89 (60-115) mg/dL Calcium 9.6 (8.4-10.2) mg/dL Magnesium 2.0 (1.6-2.6) mg/dL Total Bilirubin 0.5 (0.0-1.0) mg/dL Direct Bilirubin 0.2 (0.0-0.5) mg/dL AST 15 (5-31) U/L ALT 13 (0-31) U/L Alkaline Phosphatase 52 (39-117) U/L Troponin I High Sens (<3.5-17.0) ng/L Total Protein 7.1 (6.5-8.0) g/dL Albumin 4.6 (3.5-5.0) g/dL Lipase 28 (8-78) U/L Urine Color Urine Appearance Urine pH (5.0-9.0) Ur Specific [place] (1.005-1.025) Urine Protein (Neg-Trace) mg/dL Urine Glucose (UA) (Negative) mg/dL Urine Ketones (Negative) mg/dL Urine Blood (Negative) Urine Nitrite (Negative) Ur Leukocyte Esterase (Negative) Urine RBC (0-2) /HPF Urine WBC (0-5) /HPF Ur Squamous Epith Cells (0-2) /HPF Urine Bacteria (None Seen) Hyaline Casts (0-2) /LPF Urine Test (NEGATIVE) Influenza Type A (PCR) NEGATIVE (Negative) Influenza Type B (PCR) NEGATIVE (Negative) RSV RNA Qual (PCR) NEGATIVE (Negative) SARS-CoV-2 RNA (RT-PCR) NEGATIVE (Negative) 02/24/22 02/24/22 02/24/22 Range/Units 20:40 20:40 20:40 WBC (4.8-10.8) X10*3/uL RBC (4.20-5.50) X10*6/uL Hgb (12.0-16.0) g/dl Hct (37.0-47.0) % MCV (80.0-98.0) fL MCH (27.0-33.0) pg MCHC (31.0-35.0) g/dl RDW (11.0-16.0) % Plt Count (160-400) X10*3/uL MPV (9.4-12.3) fL Immature Gran % (Auto) (0.0-0.4) % Neut % (Auto) (45-73) % Lymph % (Auto) (20-40) % [place] % (Auto) (2-11) % Eos % (Auto) (0-4) % Baso % (Auto) (0-2) % Lymph # (Auto) (1.2-4.9) X10*3/uL [place] # (Auto) (0.1-1.2) X10*3/uL Eos # (Auto) (0.0-0.4) X10*3/uL Baso # (Auto) (0.0-0.2) X10*3/uL Abs Immat Gran (auto) (0.00-0.03) X10*3/uL Absolute Neuts (auto) (2.0-8.3) x10*3/uL Absolute Nucleated RBC (0.0-0.012) X10*3/uL Nucleated RBC % (auto) (0.0-0.2) /100WBC Smear Tech's Comments Sodium (135-145) mmol/L Potassium (3.3-5.1) mmol/L Chloride (96-108) mmol/L Carbon Dioxide (22-29) mmol/L Anion Gap (12-20) BUN (9-16) mg/dL Creatinine (0.5-1.4) mg/dL Estim Creat Clear Calc Estimated GFR Random Glucose (60-115) mg/dL Calcium (8.4-10.2) mg/dL Magnesium (1.6-2.6) mg/dL Total Bilirubin (0.0-1.0) mg/dL Direct Bilirubin (0.0-0.5) mg/dL AST (5-31) U/L ALT (0-31) U/L Alkaline Phosphatase (39-117) U/L Troponin I High Sens < 3.5 (<3.5-17.0) ng/L Total Protein (6.5-8.0) g/dL Albumin (3.5-5.0) g/dL Lipase (8-78) U/L Urine Color Yellow Urine Appearance Clear Urine pH 6.0 (5.0-9.0) Ur Specific [place] 1.020 (1.005-1.025) Urine Protein Negative (Neg-Trace) mg/dL Urine Glucose (UA) Negative (Negative) mg/dL Urine Ketones Negative (Negative) mg/dL Urine Blood Trace H (Negative) Urine Nitrite Negative (Negative) Ur Leukocyte Esterase Trace H (Negative) Urine RBC 0-2 (0-2) /HPF Urine WBC 0-5 (0-5) /HPF Ur Squamous Epith Cells 0-2 (0-2) /HPF Urine Bacteria Trace (None Seen) Hyaline Casts 0-2 (0-2) /LPF Urine Test NEGATIVE (NEGATIVE) Influenza Type A (PCR) (Negative) Influenza Type B (PCR) (Negative) RSV RNA Qual (PCR) (Negative) SARS-CoV-2 RNA (RT-PCR) (Negative) <LUCRETIA Tello - Last Filed: 02/24/22 20:25> Lab Results 02/24/22 02/24/22 02/24/22 Range/Units 20:40 20:40 20:40 WBC 9.7 (4.8-10.8) X10*3/uL RBC 4.73 (4.20-5.50) X10*6/uL Hgb 14.2 (12.0-16.0) g/dl Hct 43.0 (37.0-47.0) % MCV 90.9 (80.0-98.0) fL MCH 30.0 (27.0-33.0) pg MCHC 33.0 (31.0-35.0) g/dl RDW 11.9 (11.0-16.0) % Plt Count 179 (160-400) X10*3/uL MPV 11.8 (9.4-12.3) fL Immature Gran % (Auto) 0.3 (0.0-0.4) % Neut % (Auto) 91.1 H (45-73) % Lymph % (Auto) 5.1 L (20-40) % [place] % (Auto) 3.0 (2-11) % Eos % (Auto) 0.4 (0-4) % Baso % (Auto) 0.1 (0-2) % Lymph # (Auto) 0.5 L (1.2-4.9) X10*3/uL [place] # (Auto) 0.3 (0.1-1.2) X10*3/uL Eos # (Auto) 0.0 (0.0-0.4) X10*3/uL Baso # (Auto) 0.0 (0.0-0.2) X10*3/uL Abs Immat Gran (auto) 0.03 (0.00-0.03) X10*3/uL Absolute Neuts (auto) 8.8 H (2.0-8.3) x10*3/uL Absolute Nucleated RBC 0.000 (0.0-0.012) X10*3/uL Nucleated RBC % (auto) 0.0 (0.0-0.2) /100WBC Smear Tech's Comments VERIFIED Sodium 139 (135-145) mmol/L Potassium 3.7 (3.3-5.1) mmol/L Chloride 105 (96-108) mmol/L Carbon Dioxide 27 (22-29) mmol/L Anion Gap 11 L (12-20) BUN 12 (9-16) mg/dL Creatinine 0.65 (0.5-1.4) mg/dL Estim Creat Clear Calc 118.1 Estimated GFR > 60 Random Glucose 89 (60-115) mg/dL Calcium 9.6 (8.4-10.2) mg/dL Magnesium 2.0 (1.6-2.6) mg/dL Total Bilirubin 0.5 (0.0-1.0) mg/dL Direct Bilirubin 0.2 (0.0-0.5) mg/dL AST 15 (5-31) U/L ALT 13 (0-31) U/L Alkaline Phosphatase 52 (39-117) U/L Troponin I High Sens (<3.5-17.0) ng/L Total Protein 7.1 (6.5-8.0) g/dL Albumin 4.6 (3.5-5.0) g/dL Lipase 28 (8-78) U/L Urine Color Urine Appearance Urine pH (5.0-9.0) Ur Specific [place] (1.005-1.025) Urine Protein (Neg-Trace) mg/dL Urine Glucose (UA) (Negative) mg/dL Urine Ketones (Negative) mg/dL Urine Blood (Negative) Urine Nitrite (Negative) Ur Leukocyte Esterase (Negative) Urine RBC (0-2) /HPF Urine WBC (0-5) /HPF Ur Squamous Epith Cells (0-2) /HPF Urine Bacteria (None Seen) Hyaline Casts (0-2) /LPF Urine Test (NEGATIVE) Influenza Type A (PCR) NEGATIVE (Negative) Influenza Type B (PCR) NEGATIVE (Negative) RSV RNA Qual (PCR) NEGATIVE (Negative) SARS-CoV-2 RNA (RT-PCR) NEGATIVE (Negative) 02/24/22 02/24/22 02/24/22 Range/Units 20:40 20:40 20:40 WBC (4.8-10.8) X10*3/uL RBC (4.20-5.50) X10*6/uL Hgb (12.0-16.0) g/dl Hct (37.0-47.0) % MCV (80.0-98.0) fL MCH (27.0-33.0) pg MCHC (31.0-35.0) g/dl RDW (11.0-16.0) % Plt Count (160-400) X10*3/uL MPV (9.4-12.3) fL Immature Gran % (Auto) (0.0-0.4) % Neut % (Auto) (45-73) % Lymph % (Auto) (20-40) % [place] % (Auto) (2-11) % Eos % (Auto) (0-4) % Baso % (Auto) (0-2) % Lymph # (Auto) (1.2-4.9) X10*3/uL [place] # (Auto) (0.1-1.2) X10*3/uL Eos # (Auto) (0.0-0.4) X10*3/uL Baso # (Auto) (0.0-0.2) X10*3/uL Abs Immat Gran (auto) (0.00-0.03) X10*3/uL Absolute Neuts (auto) (2.0-8.3) x10*3/uL Absolute Nucleated RBC (0.0-0.012) X10*3/uL Nucleated RBC % (auto) (0.0-0.2) /100WBC Smear Tech's Comments Sodium (135-145) mmol/L Potassium (3.3-5.1) mmol/L Chloride (96-108) mmol/L Carbon Dioxide (22-29) mmol/L Anion Gap (12-20) BUN (9-16) mg/dL Creatinine (0.5-1.4) mg/dL Estim Creat Clear Calc Estimated GFR Random Glucose (60-115) mg/dL Calcium (8.4-10.2) mg/dL Magnesium (1.6-2.6) mg/dL Total Bilirubin (0.0-1.0) mg/dL Direct Bilirubin (0.0-0.5) mg/dL AST (5-31) U/L ALT (0-31) U/L Alkaline Phosphatase (39-117) U/L Troponin I High Sens < 3.5 (<3.5-17.0) ng/L Total Protein (6.5-8.0) g/dL Albumin (3.5-5.0) g/dL Lipase (8-78) U/L Urine Color Yellow Urine Appearance Clear Urine pH 6.0 (5.0-9.0) Ur Specific [place] 1.020 (1.005-1.025) Urine Protein Negative (Neg-Trace) mg/dL Urine Glucose (UA) Negative (Negative) mg/dL Urine Ketones Negative (Negative) mg/dL Urine Blood Trace H (Negative) Urine Nitrite Negative (Negative) Ur Leukocyte Esterase Trace H (Negative) Urine RBC 0-2 (0-2) /HPF Urine WBC 0-5 (0-5) /HPF Ur Squamous Epith Cells 0-2 (0-2) /HPF Urine Bacteria Trace (None Seen) Hyaline Casts 0-2 (0-2) /LPF Urine Test NEGATIVE (NEGATIVE) Influenza Type A (PCR) (Negative) Influenza Type B (PCR) (Negative) RSV RNA Qual (PCR) (Negative) SARS-CoV-2 RNA (RT-PCR) (Negative) <Héctor Silva MD - Last Filed: 02/25/22 01:26> Discharge Plan Discharge Clinical Impression: Abdominal pain <LUCRETIA Tello - Last Filed: 02/24/22 20:25> Patient Disposition: Home, Self-Care <LUCRETIA Tello - Last Filed: 02/24/22 20:25> Instructions: Abdominal Pain (ED) <LUCRETIA Tello - Last Filed: 02/24/22 20:25> Additional Instructions: Cause of your abdominal pain is not very clear CT scan and ultrasound were negative possible IBS Drink plenty of fluids Pain medication as prescribed Follow with PCP Tylenol/Motrin for fever La causa de page dolor abdominal no es muy raghu La tomograf?a computarizada y la ecograf?a dieron negativo posible SII Beber mucho l?quido Medicamentos para el dolor seg?n lo prescrito Seguir con PCP Tylenol/Motrin para la fiebre <LUCRETIA Tello - Last Filed: 02/24/22 20:25> Prescriptions: New dicyclomine 20 mg tablet 20 mg PO TID PRN (Reason: abdominal pain) Qty: 20 0RF <LUCRETIA Tello - Last Filed: 02/24/22 20:25> Print Language: B[place]an <LUCRETIA Tello - Last Filed: 02/24/22 20:25>
[2022-02-24 20:12] VITALS: BP 117/69; PULSE 100; RESP 20; TEMP 38.6; O2SAT 100; BMI 25.7
--- NOTE | 2022-02-24 20:20 | ECG_ITS ---
Test Reason : CHEST PAIN Blood Pressure : / mmHG Vent. Rate : 100 BPM Atrial Rate : 100 BPM P-R Int : 128 ms QRS Dur : 080 ms QT Int : 332 ms P-R-T Axes : 074 043 014 degrees QTc Int : 428 ms Normal sinus rhythm Nonspecific ST and T wave abnormality Abnormal ECG When compared with ECG of 13-OCT-2017 20:44, Vent. rate has increased BY [address] now depressed in Inferior leads Non-specific change in ST segment in Anterior leads T wave inversion now evident in Inferior leads Inverted T waves have replaced nonspecific T wave abnormality in Anterior leads Referred By: Veronika Pereira Electronically Signed By:SOFÍA BASHIR
[2022-02-24] MEDS: Acetaminophen 325 MG TABLET 650 MG PO (20:36)
[2022-02-24] MEDS: Meclizine HCl 25 MG TABLET PO (20:37)
[2022-02-24 20:54] LABS: Appearance Urine Clear; Basophils Percent Auto 0.1 % (0-2); Color Urine Yellow; Eosinophils Percent Auto 0.4 % (0-4); Glucose Urine UA Negative (Negative); Hemoglobin 14.2 g/dl (12.0-16.0); Imm Gran Abs Auto 0.03 X10*3/uL (0.00-0.03); Imm Gran Pct Auto 0.3 % (0.0-0.4); Leukocyte Esterase Urine Trace (Negative); Lymphocytes Absolute Auto 0.5 X10*3/uL (1.2-4.9); Lymphocytes Percent Auto 5.1 % (20-40); MANUAL DIFF FLAG SCAN; Mean Corpuscular Volume 90.9 fL (80.0-98.0); Mean Platelet Volume 11.8 fL (9.4-12.3); Monocytes Absolute Auto 0.3 X10*3/uL (0.1-1.2); Neutrophils Absolute Auto 8.8 x10*3/uL (2.0-8.3); Neutrophils Percent Auto 91.1 % (45-73); Nitrite Urine Negative (Negative); Platelet Count 179 X10*3/uL (160-400); Red Blood Count 4.73 X10*6/uL (4.20-5.50); Red Cell Distribution Width 11.9 % (11.0-16.0); SCAN SMEAR FLAG 1; UMIC TRIGGER UACC YES; Urine Blood Trace (Negative); Urine Ketones Negative (Negative); Urine Protein Negative (Neg-Trace); White Blood Count 9.7 X10*3/uL (4.8-10.8)
[2022-02-24 20:57] LABS: UPreg QC Valid YES; Urine Pregnancy NEGATIVE (NEGATIVE)
[2022-02-24 20:59] LABS: Bacteria Urine Trace (None Seen); Hyaline Casts Urine 0-2 /LPF (0-2); RBC Urine 0-2 /HPF (0-2); Squamous Epithelial Cell Urine 0-2 /HPF (0-2); WBC Urine 0-5 /HPF (0-5)
[2022-02-24 21:06] LABS: Alanine Aminotransferase 13 U/L (0-31); Albumin Level 4.6 g/dL (3.5-5.0); Alkaline Phosphatase 52 U/L (39-117); Anion Gap 11 (12-20); Aspartate Amino Transferase 15 U/L (5-31); Bilirubin Direct 0.2 mg/dL (0.0-0.5); Bilirubin Total 0.5 mg/dL (0.0-1.0); Blood Urea Nitrogen 12 mg/dL (9-16); Calcium 9.6 mg/dL (8.4-10.2); Carbon Dioxide 27 mmol/L (22-29); Chloride 105 mmol/L (96-108); Creatinine Clr Calc Pharmacy 118.1; Estimated Glomerular Filt Rate > 60; Glucose Random 89 mg/dL (60-115); Lipase 28 U/L (8-78); Potassium 3.7 mmol/L (3.3-5.1); Sodium 139 mmol/L (135-145); Total Protein 7.1 g/dL (6.5-8.0)
[2022-02-24 21:17] LABS: Troponin-I High Sensitivity < 3.5 ng/L (<3.5-17.0)
[2022-02-24 21:21] LABS: SLIDE REVIEW VERIFIED
[2022-02-24 21:33] LABS: Influenza A PCR NEGATIVE (Negative); Influenza B PCR NEGATIVE (Negative); Resp Syncy Virus RNA Qual PCR NEGATIVE (Negative); SARS COV2 PCR INHOUSE NEGATIVE (Negative)
[2022-02-24 23:50] VITALS: BP 114/66; PULSE 91; RESP 20; TEMP 36.9; O2SAT 100
[2022-02-24] MEDS: traMADoL HCL 50 MG TABLET PO (23:59)
[2022-02-25] MEDS: Ondansetron ODT 4 MG TAB.RAPDIS TRANSLINGU (00:05)
[2022-02-25] MEDS: 0.9 % Sodium Chloride 1,000 ML 999 ML IV (00:10)
--- NOTE | 2022-02-25 00:21 | PC.NURSE ---
Pt resting, no other needs expressed.
[2022-02-25 01:55] VITALS: BP 123/67; PULSE 100; RESP 17; TEMP 36.9; O2SAT 98
[2022-02-25 01:56] VITALS: BP 133/68; PULSE 96; RESP 18; TEMP 37.2; O2SAT 100
== END 2022-02-25 01:58 | disposition home or self-care (01) ==
PROVIDERS: Physician Assistant; Emergency Provider Internal Medicine
DX: R10.9 Unspecified abdominal pain (principal); R50.9 Fever, unspecified; Z20.828 Contact with and (suspected) exposure to other viral communicable diseases
CPT/HCPCS: 0241U; 36415; 71045; 74176; 76705; 80048; 80076; 81001; 81025; 83690; 83735; 84484; 85025; 93005; 96360; 96361; 99284

== ENCOUNTER 2023-07-27 10:22 | Emergency (ER) | payer MEDICAID, SELFPAY ==
--- NOTE | 2023-07-27 | ECG_ITS ---
Test Reason : cp Blood Pressure : / mmHG Vent. Rate : 057 BPM Atrial Rate : 057 BPM P-R Int : 134 ms QRS Dur : 090 ms QT Int : 390 ms P-R-T Axes : 043 033 040 degrees QTc Int : 379 ms Sinus bradycardia Nonspecific T wave abnormality Abnormal ECG When compared with ECG of 24-FEB-2022 20:31, Vent. rate has decreased BY 43 BPM QT has shortened Referred By: Generic ED Physician Electronically Signed By:FEDERICO GROSS MD
--- NOTE | ~2023-07-27 | XR_ITS ---
EXAMINATION: XR CHEST CLINICAL INFORMATION: Chest pain. COMPARISON: Chest x-ray 02/24/2022. TECHNIQUE: 2 views of the chest were obtained. FINDINGS: The cardiomediastinal silhouette is within normal limits. Lungs are well expanded. No consolidation or effusion. The upper abdomen appears normal. Healed left clavicular fracture. XR/XR chest 2V IMPRESSION: No acute cardiopulmonary findings. Healed left clavicular fracture.
[2023-07-27 10:30] VITALS: BP 138/90; PULSE 58; RESP 16; TEMP 36.4; O2SAT 100; BMI 27.8
[2023-07-27 10:52] LABS: MANUAL DIFF FLAG NO
[2023-07-27 10:56] LABS: Basophils Percent Auto 0.2 % (0-2); Eosinophils Absolute Auto 0.1 X10*3/uL (0.0-0.4); Eosinophils Percent Auto 1.7 % (0-4); Hematocrit 38.8 % (37.0-47.0); Hemoglobin 13.1 g/dl (12.0-16.0); Imm Gran Abs Auto 0.01 X10*3/uL (0.00-0.03); Imm Gran Pct Auto 0.2 % (0.0-0.4); Lymphocytes Absolute Auto 1.4 X10*3/uL (1.2-4.9); Lymphocytes Percent Auto 25.1 % (20-40); Mean Corpuscular HGB Conc 33.8 g/dl (31.0-35.0); Mean Corpuscular Hemoglobin 30.8 pg (27.0-33.0); Mean Corpuscular Volume 91.1 fL (80.0-98.0); Mean Platelet Volume 11.3 fL (9.4-12.3); Monocytes Absolute Auto 0.3 X10*3/uL (0.1-1.2); Monocytes Percent Auto 5.9 % (2-11); Neutrophils Absolute Auto 3.6 x10*3/uL (2.0-8.3); Neutrophils Percent Auto 66.9 % (45-73); Platelet Count 170 X10*3/uL (160-400); Red Blood Count 4.26 X10*6/uL (4.20-5.50); Red Cell Distribution Width 12.1 % (11.0-16.0); White Blood Count 5.4 X10*3/uL (4.8-10.8)
[2023-07-27 11:15] LABS: Alanine Aminotransferase 12 U/L (0-31); Albumin Level 4.2 g/dL (3.5-5.0); Alkaline Phosphatase 46 U/L (39-117); Anion Gap 11 (12-20); Aspartate Amino Transferase 16 U/L (5-31); Bilirubin Total 0.4 mg/dL (0.0-1.0); Blood Urea Nitrogen 11 mg/dL (9-16); Calcium 9.6 mg/dL (8.4-10.2); Carbon Dioxide 27 mmol/L (22-29); Chloride 107 mmol/L (96-108); Creatinine Clr Calc Pharmacy 117.7; Estimated Glomerular Filt Rate > 60; Glucose Random 87 mg/dL (60-115); Potassium 3.6 mmol/L (3.3-5.1); Sodium 141 mmol/L (135-145); Total Protein 6.9 g/dL (6.5-8.0)
[2023-07-27 11:29] LABS: Troponin-I High Sensitivity < 2.7 ng/L (<3.5-17.0)
== END 2023-07-27 18:12 | disposition left against medical advice (07) ==
PROVIDERS: Emergency Provider Emergency Medicine; PCP Physician Assistant Medical
DX: R07.9 Chest pain, unspecified (principal); N64.4 Mastodynia
CPT/HCPCS: 36415; 71046; 80053; 84484; 85025; 93005; 99283

== ENCOUNTER → 2023-07-27 10:38 | Outpatient (BNV) | payer MEDICAID, SELFPAY | PROVIDERS: PCP Physician Assistant Medical; Visit Provider Internal Medicine Cardiovascular Disease | DX: R07.9 Chest pain, unspecified (principal); R00.1 Bradycardia, unspecified; R94.31 Abnormal electrocardiogram [ECG] [EKG] | CPT/HCPCS: 93010 ==

== ENCOUNTER 2023-08-30 17:09 | Emergency (ER) | payer MEDICAID, SELFPAY ==
[2023-08-30 17:36] VITALS: BP 124/77; PULSE 69; RESP 20; TEMP 37.2; O2SAT 100; BMI 23.4
[2023-08-30 18:04] LABS: MANUAL DIFF FLAG NO
[2023-08-30 18:06] LABS: Appearance Urine Cloudy; Color Urine Yellow; Glucose Urine UA Negative (Negative); Leukocyte Esterase Urine Trace (Negative); Nitrite Urine Negative (Negative); PH 7.5 (5.0-9.0); Specific Gravity - Urine 1.015 (1.005-1.025); UMIC TRIGGER UACC YES; Urine Blood Negative (Negative); Urine Ketones Negative (Negative); Urine Protein Negative (Neg-Trace)
[2023-08-30 18:09] LABS: Bacteria Urine None Seen (None Seen); Hyaline Casts Urine 0-2 /LPF (0-2); RBC Urine 0-2 /HPF (0-2); UPreg QC Valid YES; Urine Pregnancy NEGATIVE (NEGATIVE); WBC Urine 0-5 /HPF (0-5)
[2023-08-30 18:31] LABS: Basophils Percent Auto 0.3 % (0-2); Eosinophils Absolute Auto 0.1 X10*3/uL (0.0-0.4); Hematocrit 40.9 % (37.0-47.0); Hemoglobin 13.7 g/dl (12.0-16.0); Imm Gran Abs Auto 0.01 X10*3/uL (0.00-0.03); Imm Gran Pct Auto 0.1 % (0.0-0.4); Lymphocytes Absolute Auto 1.7 X10*3/uL (1.2-4.9); Lymphocytes Percent Auto 22.2 % (20-40); Mean Corpuscular HGB Conc 33.5 g/dl (31.0-35.0); Mean Corpuscular Hemoglobin 30.6 pg (27.0-33.0); Mean Corpuscular Volume 91.3 fL (80.0-98.0); Mean Platelet Volume 12.3 fL (9.4-12.3); Monocytes Absolute Auto 0.5 X10*3/uL (0.1-1.2); Monocytes Percent Auto 6.7 % (2-11); Neutrophils Absolute Auto 5.4 x10*3/uL (2.0-8.3); Neutrophils Percent Auto 69.7 % (45-73); Platelet Count 192 X10*3/uL (160-400); Red Blood Count 4.48 X10*6/uL (4.20-5.50); White Blood Count 7.8 X10*3/uL (4.8-10.8)
[2023-08-30 18:44] LABS: Alanine Aminotransferase 10 U/L (0-31); Albumin Level 4.6 g/dL (3.5-5.0); Alkaline Phosphatase 50 U/L (39-117); Anion Gap 11 (12-20); Aspartate Amino Transferase 13 U/L (5-31); Blood Urea Nitrogen 12 mg/dL (9-16); Calcium 10.3 mg/dL (8.4-10.2); Carbon Dioxide 30 mmol/L (22-29); Chloride 105 mmol/L (96-108); Creatinine Clr Calc Pharmacy 111.2; Estimated Glomerular Filt Rate > 60; Glucose Random 95 mg/dL (60-115); Lipase 65 U/L (8-78); Potassium 3.8 mmol/L (3.3-5.1); Sodium 142 mmol/L (135-145); Total Protein 7.7 g/dL (6.5-8.0)
[2023-08-30 19:09] LABS: Bilirubin Total 0.5 mg/dL (0.0-1.0)
[2023-08-30 21:15] VITALS: BP 125/69; PULSE 64; RESP 18; TEMP 36.9; O2SAT 100
--- NOTE | 2023-08-30 23:30 | ED.ABDPAIN ---
HPI - Abdominal Pain General Chief Complaint: Abdominal Pain Stated Complaint: abdominal pain, dizzy spells, ? Time Seen by Provider: 08/30/23 23:30 Source: patient Mode of arrival: ambulatory Limitations: no limitations History of Present Illness ED Provider: yoseph MUELLER narrative: Patient complaining of lower abdominal pain since yesterday missed her menstruation by 8 days checked for test 2 of them were positive patient is status post tubal ligation feel nauseated no vaginal discharge no urinary symptoms no diarrhea no vomiting Related Data Previous Rx's ?Medication ?Instructions ?Recorded dicyclomine 20 mg tablet 20 mg PO TID PRN abdominal pain 02/25/22 #20 tabs ibuprofen 600 mg tablet 600 mg PO Q6H PRN fever or pain 08/30/23 #30 tabs Allergies Allergy/AdvReac Type Severity Reaction Status Date / Time No Known Allergies Allergy Verified 08/30/23 17:42 [No Known Allergies*] Review of Systems Review of Systems Yes all other systems are reviewed and are negative PMFSH Past Medical History Medical History No known health problems Surgical History History of appendectomy Social History Social History Alcohol intake: never Patient Tobacco Use Status: Never used Tobacco Advance Directives: No Advance Directives Information Provided: No Do you have a plan to hurt others: No Plan Gender identity: Female Physical Exam ED Vital Signs: Vital Signs - 24 hr 08/30/23 17:36 08/30/23 21:15 Temperature 98.9 F 98.5 F Pulse Rate 69 64 Respiratory Rate 20 18 Blood Pressure 124/77 125/69 Pulse Oximetry 100 100 Oxygen Delivery Method Room Air Room Air BMI result Body Mass Index 23.4 Appearance: Alert. Oriented X3. No acute distress. Eyes: No pallor or icterus ENT: Pharynx normal. Oral Mucosa moist Neck: Normal inspection. Neck supple. CVS: Normal heart rate and rhythm. Pulses normal. Respiratory: No respiratory distress. Equal air entry bilateral, no wheezing/rales/rhonchi Abdomen: Soft and mild deep tenderness suprapubic area no rebound tenderness or guarding Bowel sounds are present, no mass palpable, no CVA tenderness Skin: Skin warm and dry. Normal skin color. Normal skin turgor. Extremities: No lower extremity edema. No calf tenderness Neuro: Oriented X 3. Medical Decision Making Medical Decision Making [facility] Narrative: Patient is worried about missed menstruation previous CT scan and ultrasound negative for ovarian cyst nonspecific pain urine is negative for discharge patient home likely menstrual cramping pain Differential Diagnosis Differential Diagnoses: The differential diagnosis associated with the presentation includes Lab Data [facility] Lab Attestation statement: I reviewed the patient's lab results. 08/30/23 17:53 08/30/23 17:53 Labs: Lab Results 08/30/23 Range/Units 17:53 WBC 7.8 (4.8-10.8) X10*3/uL RBC 4.48 (4.20-5.50) X10*6/uL Hgb 13.7 (12.0-16.0) g/dl Hct 40.9 (37.0-47.0) % MCV 91.3 (80.0-98.0) fL MCH 30.6 (27.0-33.0) pg MCHC 33.5 (31.0-35.0) g/dl RDW 12.0 (11.0-16.0) % Plt Count 192 (160-400) X10*3/uL MPV 12.3 (9.4-12.3) fL Immature Gran % (Auto) 0.1 (0.0-0.4) % Neut % (Auto) 69.7 (45-73) % Lymph % (Auto) 22.2 (20-40) % [place] % (Auto) 6.7 (2-11) % Eos % (Auto) 1.0 (0-4) % Baso % (Auto) 0.3 (0-2) % Lymph # (Auto) 1.7 (1.2-4.9) X10*3/uL [place] # (Auto) 0.5 (0.1-1.2) X10*3/uL Eos # (Auto) 0.1 (0.0-0.4) X10*3/uL Baso # (Auto) 0.0 (0.0-0.2) X10*3/uL Abs Immat Gran (auto) 0.01 (0.00-0.03) X10*3/uL Absolute Neuts (auto) 5.4 (2.0-8.3) x10*3/uL Absolute Nucleated RBC 0.000 (0.0-0.012) X10*3/uL Nucleated RBC % (auto) 0.0 (0.0-0.2) /100WBC Sodium 142 (135-145) mmol/L Potassium 3.8 (3.3-5.1) mmol/L Chloride 105 (96-108) mmol/L Carbon Dioxide 30 H (22-29) mmol/L Anion Gap 11 L (12-20) BUN 12 (9-16) mg/dL Creatinine 0.73 (0.5-1.4) mg/dL Estim Creat Clear Calc 111.2 Estimated GFR > 60 Random Glucose 95 (60-115) mg/dL Calcium 10.3 H D (8.4-10.2) mg/dL Total Bilirubin 0.5 (0.0-1.0) mg/dL AST 13 (5-31) U/L ALT 10 (0-31) U/L Alkaline Phosphatase 50 (39-117) U/L Total Protein 7.7 (6.5-8.0) g/dL Albumin 4.6 (3.5-5.0) g/dL Lipase 65 (8-78) U/L Urine Color Yellow Urine Appearance Cloudy Urine pH 7.5 (5.0-9.0) Ur Specific [place] 1.015 (1.005-1.025) Urine Protein Negative (Neg-Trace) mg/dL Urine Glucose (UA) Negative (Negative) mg/dL Urine Ketones Negative (Negative) mg/dL Urine Blood Negative (Negative) Urine Nitrite Negative (Negative) Ur Leukocyte Esterase Trace H (Negative) Urine RBC 0-2 (0-2) /HPF Urine WBC 0-5 (0-5) /HPF Ur Squamous Epith Cells 3-5 (0-2) /HPF Urine Bacteria None Seen (None Seen) Hyaline Casts 0-2 (0-2) /LPF Urine Test NEGATIVE (NEGATIVE) Discharge Plan Discharge Clinical Impression: Abdominal pain Patient Disposition: Home, Self-Care Instructions: Abdominal Pain (ED) Additional Instructions: Likely your pain is from impending menstruation Take ibuprofen for pain Your urine test is negative for Follow with your PCP Prescriptions: New ibuprofen 600 mg tablet 600 mg PO Q6H PRN (Reason: fever or pain) Qty: 30 0RF No Action dicyclomine 20 mg tablet 20 mg PO TID PRN (Reason: abdominal pain) Qty: 20 0RF Print Language: Nam[place]ian
[2023-08-31 00:08] VITALS: BP 125/69; PULSE 64; RESP 18; TEMP 36.9; O2SAT 100
== END 2023-08-31 00:09 | disposition home or self-care (01) ==
PROVIDERS: Emergency Provider Internal Medicine; PCP Physician Assistant Medical
DX: R42 Dizziness and giddiness (principal); R11.0 Nausea; Z79.899 Other long term (current) drug therapy
CPT/HCPCS: 36415; 80053; 81001; 81025; 83690; 85025; 99283; 99284

== ENCOUNTER 2023-11-17 19:29 | Emergency (ER) | payer MEDICAID, SELFPAY ==
[2023-11-17 19:50] VITALS: BP 117/69; PULSE 67; RESP 16; TEMP 36.6; O2SAT 100; BMI 28.6
--- NOTE | 2023-11-17 20:27 | ED.FEMALEGU ---
HPI - Female Genitourinary General Chief complaint: Urogenital-Female Stated complaint: ? vag abscess Related Data Previous Rx's ?Medication ?Instructions ?Recorded dicyclomine 20 mg tablet 20 mg PO TID PRN abdominal pain 02/25/22 #20 tabs ibuprofen 600 mg tablet 600 mg PO Q6H PRN fever or pain 08/30/23 #30 tabs Allergies Allergy/AdvReac Type Severity Reaction Status Date / Time No Known Allergies Allergy Verified 11/17/23 19:53 [No Known Allergies*] REPLACED BY [facility] Past Medical History Medical History No known health problems Surgical History History of appendectomy Social History Social History Alcohol intake: never Patient Tobacco Use Status: Never used Tobacco Advance Directives: No Advance Directives Information Provided: No Do you have a plan to hurt others: No Plan Gender identity: Female Physical Exam Vital Signs: Vital Signs: Last Vital Signs Temp 97.8 F 11/17/23 19:50 Pulse 67 11/17/23 19:50 Resp 16 11/17/23 19:50 BP 117/69 11/17/23 19:50 Pulse Ox 100 11/17/23 19:50 O2 Del Method Room Air 11/17/23 19:50 BMI result Body Mass Index 28.6 Course Course Course Narrative: This is a Rapid Medical Exam performed in triage by Veronika Pereira PA-C. Full HPI, ROS and PE to be performed by primary ED provider. 23 yo F presenting to the ED c/o dysuria & pain when she urinates x 3 days but worse today. Admits to nausea yesterday, not at present. denies abdominal pain, vomiting, vaginal d/c or bleeding. denies concern for STI, sexually active w/1 partner PE: abdomen soft, nontender, no rebound or guarding Plan: UA, Ur preg Medical Decision Making Lab Data Labs: Lab Results 11/17/23 Range/Units 21:13 Urine Color Yellow Urine Appearance Clear Urine pH 8.0 (5.0-9.0) Ur Specific [place] 1.015 (1.005-1.025) Urine Protein Negative (Neg-Trace) mg/dL Urine Glucose (UA) Negative (Negative) mg/dL Urine Ketones Negative (Negative) mg/dL Urine Blood Trace H (Negative) Urine Nitrite Negative (Negative) Ur Leukocyte Esterase Small (1+) H (Negative) Urine RBC 11-20 H (0-2) /HPF Urine WBC 0-5 (0-5) /HPF Ur Squamous Epith Cells 0-2 (0-2) /HPF Urine Bacteria None Seen (None Seen) Hyaline Casts 0-2 (0-2) /LPF Urine Test NEGATIVE (NEGATIVE) Discharge Plan Discharge Clinical Impression: Dysuria Patient Disposition: Left W/O Completing Treatment Prescriptions: No Action dicyclomine 20 mg tablet 20 mg PO TID PRN (Reason: abdominal pain) Qty: 20 0RF ibuprofen 600 mg tablet 600 mg PO Q6H PRN (Reason: fever or pain) Qty: 30 0RF Discharge Date/Time: 11/17/23 23:11
--- NOTE | 2023-11-17 21:12 | MHC.EDTECH ---
Patient brought into triage area,UACC obtained and sent to lab.
[2023-11-17 21:23] LABS: Appearance Urine Clear; Color Urine Yellow; Glucose Urine UA Negative (Negative); Leukocyte Esterase Urine Small (1+) (Negative); Nitrite Urine Negative (Negative); Specific Gravity - Urine 1.015 (1.005-1.025); UMIC TRIGGER UACC YES; Urine Blood Trace (Negative); Urine Ketones Negative (Negative); Urine Protein Negative (Neg-Trace)
[2023-11-17 21:25] LABS: UPreg QC Valid YES; Urine Pregnancy NEGATIVE (NEGATIVE)
[2023-11-17 21:33] LABS: Bacteria Urine None Seen (None Seen); Hyaline Casts Urine 0-2 /LPF (0-2); Squamous Epithelial Cell Urine 0-2 /HPF (0-2); UACC Culture Trigger YES; WBC Urine 0-5 /HPF (0-5)
--- NOTE | 2023-11-17 23:08 | PC.NURSE ---
No answer when t/w calling pts cell.
== END 2023-11-17 23:11 | disposition left against medical advice (07) ==
PROVIDERS: Physician Assistant; Emergency Provider Emergency Medicine
DX: R30.0 Dysuria (principal)
CPT/HCPCS: 81001; 81025; 87086; 99281; 99282

== ENCOUNTER 2024-07-18 19:51 | Emergency (ER) | payer MEDICAID, SELFPAY ==
--- NOTE | 2024-07-18 19:53 | ECG_ITS ---
Test Reason : PALPILTATIONS Blood Pressure : */* mmHG Vent. Rate : 61 BPM Atrial Rate : 61 BPM P-R Int : 132 ms QRS Dur : 96 ms QT Int : 396 ms P-R-T Axes : 64 40 51 degrees QTcB Int : 398 ms Normal sinus rhythm Normal ECG When compared with ECG of 27-Jul-2023 10:38, No significant change was found Referred By: Veronika Pereira Electronically Signed By: FEDERICO GROSS MD
--- NOTE | 2024-07-18 20:15 | ED_ITS ---
HPI - Chest Pain General Chief Complaint: Arrhythmia/Palpitations Stated Complaint: Palpitations Time Seen by Provider: 07/19/24 01:15 Source: patient Mode of arrival: ambulatory Limitations: no limitations History of Present Illness ED Provider: Dr. Jr Prince HPI narrative: 23-year-old female with a history of intermittent thrombocytopenia and hypothyroidism who presents emergency department for evaluation of 4 days of palpitations. She describes the palpitations as feeling her heart is beating fast and skipping beats. She states that the palpitations seemed to come on more when she is anxious, upset or exerting herself. She states that she does feel lightheaded and dizzy with the palpitations. She denied chest pain, neck pain or jaw pain. Patient states that she has a thyroid condition but he has not been taking your thyroid medications for many months. She states she does have fatigue and feels tired all the time. She has not gained or lost any weight. The patient denies using caffeine products, coffee or energy drinks. 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 She denies tobacco use. She occasionally drinks alcohol. She denies drug use. Medical History No known health problems Surgical History History of appendectomy Social History Social History Alcohol intake: never Patient Tobacco Use Status: Never used Tobacco Gender identity: Female Physical Exam 2 Vital Signs: Vital Signs: Last Vital Signs Temp 98.3 F 07/19/24 01:00 Pulse 59 07/19/24 01:00 Resp 13 07/19/24 01:00 BP 120/68 07/19/24 01:00 Pulse Ox 100 07/19/24 01:00 O2 Del Method Room Air 07/19/24 01:00 BMI result Body Mass Index 27.8 Vital signs were normal Exam: General: Awake, alert in no distress Head: Normocephalic, atraumatic EENT: PERRL, Lids normal, sclera normal, conjunctiva normal, nose normal , ears normal, throat without erythema or exudates Neck: Supple, no adenopathy Lung: breath sounds symmetric, no wheezing, rales or rhonchi Chest: symmetric movement, nontender Heart: regular rate and rhythm, normal S1, S2 no murmurs or rubs Abdomen: soft, non-tender, nondistended, normal bowel sounds Back: no vertebral tenderness, no CVAT Extremities: no deformities, moves all extremities symmetrically Neuro: Awake, alert, oriented, normal speech, cranial nerves intact, moves all extremities symmetrically Psych: Pleasant, cooperative Course Course Course Narrative: This is a Rapid Medical Exam performed in triage by Veronika Pereira PA-C. Full HPI, ROS and PE to be performed by primary ED provider. 23 yo Yoruba speaking F presenting to the ED c/o intermittent palpitations since Wednesday & bruising from low PLTs. denies CP, or new SOB. PE: NAD, nontoxic appearing, talking in complete sentences Plan: EKG, labs, CXR, SARs Medical Decision Making Medical Decision Making MDM Narrative: 23-year-old female with a history of intermittent thrombocytopenia and hypothyroidism who presents emergency department for evaluation of 4 days of palpitations. She describes the palpitations as feeling her heart is beating fast and skipping beats. She states that the palpitations seemed to come on more when she is anxious, upset or exerting herself. She states that she does feel lightheaded and dizzy with the palpitations. She denied chest pain, neck pain or jaw pain. Patient states that she has a thyroid condition but he has not been taking your thyroid medications for many months. She states she does have fatigue and feels tired all the time. She has not gained or lost any weight. She denies using caffeine, energy drink or illicit drugs. Vital signs were normal. Physical examination was unremarkable Differential diagnosis: ?Includes but is not limited to myocardial infarction, myocardial ischemia, cardiomyopathy, palpitations, hypothyroidism, hypothyroidism, anemia, electrolyte abnormalities Course: 02:42 My independent interpretation patient's laboratory evaluation as follows: CBC was normal with a normal platelet count of a 160,000. CMP revealed a low potassium of 3.1 and an elevated glucose of 140 otherwise unremarkable. Urine test was negative. COVID-19, influenza and RSV tests were negative. The TSH was elevated at 5.34. Free T4 was normal at 0.92 consistent with under treated hypothyroidism. This is consistent with the patient not taking her thyroid medication Patient's 12 EKG was unremarkable and unchanged from your previous. At this time I do not think that the patient's palpitations are due to a significant arrhythmia however the patient will need further workup as an outpatient. The patient states she will see her PCP this week. She was given printed and verbal instructions and discharged home. Admission/Observation Consideration of admission/observation: Escalation of care including admission/observation considered (Yes) Lab Data 07/18/24 20:13 07/18/24 20:13 Labs: Lab Results 07/18/24 07/18/24 Range/Units 20:13 21:43 WBC 6.9 (4.8-10.8) X10*3/uL RBC 4.23 (4.20-5.50) X10*6/uL Hgb 13.2 (12.0-16.0) g/dl Hct 37.9 (37.0-47.0) % MCV 89.6 (80.0-98.0) fL MCH 31.2 (27.0-33.0) pg MCHC 34.8 (31.0-35.0) g/dl RDW 12.3 (11.0-16.0) % Plt Count 160 (160-400) X10*3/uL MPV 11.9 (9.4-12.3) fL Immature Gran % (Auto) 0.3 (0.0-0.4) % Neut % (Auto) 71.1 (45-73) % Lymph % (Auto) 22.4 (20-40) % [place] % (Auto) 4.6 (2-11) % Eos % (Auto) 1.3 (0-4) % Baso % (Auto) 0.3 (0-2) % Lymph # (Auto) 1.6 (1.2-4.9) X10*3/uL [place] # (Auto) 0.3 (0.1-1.2) X10*3/uL Eos # (Auto) 0.1 (0.0-0.4) X10*3/uL Baso # (Auto) 0.0 (0.0-0.2) X10*3/uL Abs Immat Gran (auto) 0.02 (0.00-0.03) X10*3/uL Absolute Neuts (auto) 4.9 (2.0-8.3) x10*3/uL Absolute Nucleated RBC 0.000 (0.0-0.012) X10*3/uL Nucleated RBC % (auto) 0.0 (0.0-0.2) /100WBC Sodium 140 (135-145) mmol/L Potassium 3.1 L (3.3-5.1) mmol/L Chloride 106 (96-108) mmol/L Carbon Dioxide 27 (22-29) mmol/L Anion Gap 10 L (12-20) BUN 15 (9-16) mg/dL Creatinine 0.66 (0.5-1.4) mg/dL Estim Creat Clear Calc 118.5 Estimated GFR > 60 Random Glucose 140 H (60-115) mg/dL Calcium 9.4 D (8.4-10.2) mg/dL Magnesium 1.9 (1.6-2.6) mg/dL Total Bilirubin 0.4 (0.0-1.0) mg/dL Direct Bilirubin 0.1 (0.0-0.5) mg/dL AST 17 (5-31) U/L ALT 18 (0-31) U/L Alkaline Phosphatase 50 (39-117) U/L Troponin I High Sens < 2.7 (<3.5-17.0) ng/L Total Protein 6.8 (6.5-8.0) g/dL Albumin 4.4 (3.5-5.0) g/dL TSH 5.34 H (0.32-4.0) uIU/mL Free T4 0.92 (0.71-1.85) ng/dL Urine Test NEGATIVE (NEGATIVE) Influenza Type A (PCR) NEGATIVE (Negative) Influenza Type B (PCR) NEGATIVE (Negative) RSV RNA Qual (PCR) NEGATIVE (Negative) SARS-CoV-2 RNA (RT-PCR) NEGATIVE (Negative) Independent Interpretation I performed an independent interpretation of an: EKG Interpretation: My independent interpretation patient's 12 EKG done on 07/18/2024 at 20:02 hours is as follows: Normal sinus rhythm rate of 61, normal [place] interval, QRS duration QTC interval, no ST segment elevation, no ST segment depression, RR prime in lead 3, inverted T-wave in V1, no PACs, no PVCs. Compared to EKG dated 07/27/2023 at 10:38 hours there is no significant change. Chronic Conditions Patient?s care impacted by: Other (Hypothyroidism) Discharge Plan Discharge Clinical Impression: Palpitation, Hypothyroidism Patient Disposition: Home, Self-Care Instructions: Heart Palpitations (ED), Hypothyroidism (ED) Additional Instructions: Your normal at 160,000 (normal range 160,00 to400 1000). This is reassuring and suggests that your bruising in his not related to a low platelet count. Your thyroid tests revealed an elevated TSH of 5.34 with a normal free T4 of 0.92 (0.72 to 1.85). This is consistent with an under active thyroid in you need to get restarted on your thyroid medications. Your EKG was unremarkable. You will need to talk to your doctor about getting further tests to evaluate your palpitations. These tests may include a Holter monitor, and event monitor in or an echocardiogram of your heart. Follow-up with your doctor in 2 days. Please return to the emergency department if your symptoms get worse or if you develop any symptoms that are concerning to you. Please see the return to work note Prescriptions: No Action dicyclomine 20 mg tablet 20 mg PO TID PRN (Reason: abdominal pain) Qty: 20 0RF ibuprofen 600 mg tablet 600 mg PO Q6H PRN (Reason: fever or pain) Qty: 30 0RF Stand Alone Forms: Work/School Release Print Language: Yoruba
[2024-07-18 20:17] VITALS: BP 123/76; PULSE 86; RESP 18; TEMP 36.8; O2SAT 100; BMI 27.8
[2024-07-18 20:20] LABS: MANUAL DIFF FLAG NO
[2024-07-18 20:24] LABS: Basophils Percent Auto 0.3 % (0-2); Eosinophils Absolute Auto 0.1 X10*3/uL (0.0-0.4); Eosinophils Percent Auto 1.3 % (0-4); Hematocrit 37.9 % (37.0-47.0); Hemoglobin 13.2 g/dl (12.0-16.0); Imm Gran Abs Auto 0.02 X10*3/uL (0.00-0.03); Imm Gran Pct Auto 0.3 % (0.0-0.4); Lymphocytes Absolute Auto 1.6 X10*3/uL (1.2-4.9); Lymphocytes Percent Auto 22.4 % (20-40); Mean Corpuscular HGB Conc 34.8 g/dl (31.0-35.0); Mean Corpuscular Hemoglobin 31.2 pg (27.0-33.0); Mean Corpuscular Volume 89.6 fL (80.0-98.0); Mean Platelet Volume 11.9 fL (9.4-12.3); Monocytes Absolute Auto 0.3 X10*3/uL (0.1-1.2); Monocytes Percent Auto 4.6 % (2-11); Neutrophils Absolute Auto 4.9 x10*3/uL (2.0-8.3); Neutrophils Percent Auto 71.1 % (45-73); Platelet Count 160 X10*3/uL (160-400); Red Blood Count 4.23 X10*6/uL (4.20-5.50); Red Cell Distribution Width 12.3 % (11.0-16.0); White Blood Count 6.9 X10*3/uL (4.8-10.8)
[2024-07-18 20:36] LABS: Alanine Aminotransferase 18 U/L (0-31); Albumin Level 4.4 g/dL (3.5-5.0); Alkaline Phosphatase 50 U/L (39-117); Anion Gap 10 (12-20); Aspartate Amino Transferase 17 U/L (5-31); Bilirubin Direct 0.1 mg/dL (0.0-0.5); Bilirubin Total 0.4 mg/dL (0.0-1.0); Blood Urea Nitrogen 15 mg/dL (9-16); Calcium 9.4 mg/dL (8.4-10.2); Carbon Dioxide 27 mmol/L (22-29); Chloride 106 mmol/L (96-108); Creatinine Clr Calc Pharmacy 118.5; Estimated Glomerular Filt Rate > 60; Glucose Random 140 mg/dL (60-115); Magnesium 1.9 mg/dL (1.6-2.6); Potassium 3.1 mmol/L (3.3-5.1); Sodium 140 mmol/L (135-145); Total Protein 6.8 g/dL (6.5-8.0)
[2024-07-18 20:45] LABS: Troponin-I High Sensitivity < 2.7 ng/L (<3.5-17.0)
[2024-07-18 20:57] LABS: Influenza A PCR NEGATIVE (Negative); Influenza B PCR NEGATIVE (Negative); Resp Syncy Virus RNA Qual PCR NEGATIVE (Negative); SARS COV2 PCR INHOUSE NEGATIVE (Negative)
[2024-07-18 20:58] LABS: TSH reflex Free T4 5.34 uIU/mL (0.32-4.0)
[2024-07-18 21:37] LABS: Free T4 (Free Thyroxine) 0.92 ng/dL (0.71-1.85)
[2024-07-18 22:08] LABS: UPreg QC Valid YES; Urine Pregnancy NEGATIVE (NEGATIVE)
[2024-07-19 01:00] VITALS: BP 120/68; PULSE 59; RESP 13; TEMP 36.8; O2SAT 100
[2024-07-19 02:37] VITALS: BP 111/72; PULSE 68; RESP 10; TEMP 36.6; O2SAT 98
[2024-07-19 02:42] VITALS: BP 111/72; PULSE 68; RESP 10; TEMP 36.6; O2SAT 98
== END 2024-07-19 02:43 | disposition home or self-care (01) ==
PROVIDERS: Physician Assistant; Emergency Provider Emergency Medicine Emergency Medical Services; PCP Physician Assistant Medical
DX: R00.2 Palpitations (principal); E03.9 Hypothyroidism, unspecified; Z03.818 Encounter for observation for suspected exposure to other biological agents ruled out
CPT/HCPCS: 0241U; 36415; 80048; 80076; 81025; 83735; 84439; 84443; 84484; 85025; 93005; 99283; 99285

== ENCOUNTER → 2024-07-18 19:53 | Outpatient (BNV) | payer MEDICAID, SELFPAY | PROVIDERS: Emergency Provider Emergency Medicine Emergency Medical Services; PCP Physician Assistant Medical; Visit Provider Internal Medicine Cardiovascular Disease | DX: R00.2 Palpitations (principal) | CPT/HCPCS: 93010 ==